=== PATIENT | female | born 1975 | race Caucasian/White ===

== ENCOUNTER 2016-06-21 13:22 | Inpatient (IN) | payer OTHER ==
[~2016-06-21] VITALS: Ht 162.6 cm; Wt 195.2 kg
--- NOTE | ~2016-06-21 | HC ---
[facility] [place] [address] CONSULTATION Name: AYAH EVANS Room #: [address] [place] [address] [place] ..#: [id number] Admission: 06/21/16 Attend Phys: Kwabena Richardson MD Discharge: Date of : 75 Report #: [id number] THIS REPORT FOR: //name// CC: JAYANT physician/PCP Kwabena Richardson DATE OF SERVICE: 06/22/2016 CARDIOLOGY CONSULTATION INDICATION: Chest pain. HISTORY OF PRESENT ILLNESS: This is a 40-year-old female presenting with chest pain. She has significant CAD risk factors, including insulin-dependent diabetes mellitus, hypertension, hypercholesterolemia and chronic tobacco use. She reports having substernal discomfort associated with shortness of breath and diaphoresis. It lasted for several hours' in duration. Serial troponins are negative. She was here in February with a similar presentation. A nuclear stress test revealed possible ischemia in the distal inferior segment. There is no history of fever, chills or vomiting. PAST MEDICAL HISTORY: Diabetes mellitus, hypertension, DVT, hypercholesterolemia, obesity and COPD. ALLERGIES: PENICILLIN, HYDROMORPHONE and LEVOFLOXACIN. MEDICATIONS: Include insulin, valsartan 320 mg daily, simvastatin 20 mg, aspirin once a day, Eliquis 5 mg twice a day, Aldactone 50 mg daily, metoprolol and diltiazem. SOCIAL HISTORY: Positive for tobacco use, one pack per day. FAMILY HISTORY: Negative for premature CAD. REVIEW OF SYSTEMS: A full 10-point review of systems performed. Only the pertinent positives and negatives are described in the HPI. PHYSICAL EXAMINATION: VITAL SIGNS: Blood pressure is 120/70, heart rate is 70 beats per minute. GENERAL APPEARANCE: An obese female in no acute respiratory distress. HEAD AND EYES: Normocephalic. Sclerae anicteric. ENT: Oral mucosa moist. NECK: Supple. LUNGS: Clear to auscultation. CARDIAC: Heart regular rate and rhythm, S1, S2 positive. ABDOMEN: Soft. [facility] [address] [place] [address] CONSULTATION Name: AYAH EVANS Room #: [facility] IN [facility].#: [id number] Admission: 06/21/16 Attend Phys: Kwabena Richardson MD Discharge: Date of : 75 Report #: [id number] EXTREMITIES: No major joint deformities. No edema. RADIOGRAPHIC DATA: ECG reveals sinus rhythm, nonspecific IVCD. LABORATORY VALUES: Serial troponins are negative. Sodium is 136, creatinine is 1.7. White count is 14.0, hemoglobin 13.6. ASSESSMENT AND PLAN: 1. Unstable angina. The patient had a previous nuclear stress test several months ago that revealed possible ischemia in the distal inferior segment. I do not see the benefit of repeating a nuclear stress study. Given her significant risk factors and abnormal nuclear stress test. The next option would be a cardiac catheterization. The overall risks and benefits of cardiac catheterization were discussed with the patient. The patient understands and wishes to proceed. 2. Deep venous thrombosis several years ago, will need to hold Eliquis at this time. We will proceed with angiogram in a few days' time. 3. Hypertension. The blood pressure is stable. 4. Hypercholesterolemia, tolerating statin therapy, offers no complaints of myalgias. 5. Diabetes mellitus, continue with insulin regimen. 6. Tobacco use, complete smoking cessation is recommended. Thank you for allowing me to participate in the care of your patient. <ELECTRONICALLY SIGNED> By: Chance Christopher MD 06/23/16 0802 0802 1229 Chance Christopher MD /nt
--- NOTE | ~2016-06-21 | 2DMMODE ---
[facility] [place] [address] 2 D/M-MODE ECHOCARDIOGRAM Name: AYAH EVANS Kaden Room #: 211-P [facility]#: [id number] Admission: 06/21/16 Attend Phys: Kwabena Richardson, Discharge: Date of : 75 Date of Service: 06/22/16 1529 Report #: [id number] THIS REPORT FOR: //name// APPROVED REPORT Study performed: 06/22/2016 14:04:15 EXAM: Comprehensive 2D, Doppler, and color-flow Echocardiogram Patient Location: Bedside Blood Pressure: 126/61 mmHg HR: 83 bpm Other Information Study Quality: Poor Indications COPD Diabetes Hypertension/HDD Chest Pain Aortic Valve AoV Peak Abdirahman.: 1.42 m/s AO Peak Gr.: 8.08 mmHg LV Max P.28 mmHg LV Max: 0.91 m/s Mitral Valve MV PHT: 71.87 ms MV E Max Abdirahman.: 0.85 m/s E/A Ratio: 1.4 MV A Abdirahman.: 0.62 m/s MV Decel. Time: 247.82 ms Pulmonary Valve PV Peak Abdirahman.: 1.08 m/s PV Peak Gr.: 4.65 mmHg Left Ventricle The left ventricle appears normal in size. The left ventricular systolic function appears normal. The left ventricular ejection fraction is within the normal range. LVEF is 55-60%. The left ventricular diastolic function is normal. Right Ventricle [facility] [address] [place] [address] 2 D/M-MODE ECHOCARDIOGRAM Name: AYAH EVANS Room #: 211-P [facility] IN M.R.#: [id number] Admission: 06/21/16 Attend Phys: Kwabena Richardson, Discharge: Date of : 75 Date of Service: 06/22/16 1529 Report #: [id number] The right ventricle is normal size. The right ventricular systolic function is normal. Atria The left atrium size is normal. The right atrium size is normal. Aortic Valve The aortic valve is not well visualized. Mitral Valve Mitral valve is not well visualized. Tricuspid Valve Tricuspid valve is not well visualized. Pulmonic Valve Pulmonic valve is not visualized. Great Vessels IVC is not visualized. Pericardium There is no pericardial effusion. <Conclusion> The left ventricle appears normal in size. LVEF is 55-60%. The aortic valve is not well visualized. Mitral valve is not well visualized. Tricuspid valve is not well visualized. There is no pericardial effusion. Very little useful information obtained <ELECTRONICALLY SIGNED> By: Joce Trevizo MD 06/22/16 1529 1529 1529 Joce Trevizo MD /INF
--- NOTE | ~2016-06-21 | CATHLAB ---
[facility] [place] [address] INVASIVE PROCEDURE REPORT Name: AYAH EVANS Room #: 211-P [facility]#: [id number] Admission: 06/21/16 Attend Phys: Kwabena Richardson, Discharge: 06/24/16 Date of : 75 Date of Service: 06/24/16 1105 Report #: [id number] THIS REPORT FOR: //name// CC: [facility] physician/PCP Kwabena Richardson DATE OF SERVICE: 06/24/2016 CARDIAC CATHETERIZATION REPORT INDICATIONS: Unstable angina, abnormal nuclear stress test. Full risks, benefits and alternatives of cardiac catheterization were explained to the patient. All questions were answered. Informed consent was obtained. A Barbeau test was performed on the right radial artery. The right wrist area was prepped and draped in a sterile manner. Lidocaine was given subcutaneously. A 5-Indonesian sheath was inserted into the right radial artery via modified Seldinger technique. Nitroglycerin and verapamil were injected through the sheath. Heparin 5000 units was introduced in the peripheral IV. CORONARY ANATOMY: The left main artery is a large caliber vessel, with no flow-limiting lesions. The LAD is a hheenjfj-rs-dhsgl-sized caliber vessel, travelling down the anterior wall and wrapping around the apex. There are no flow-limiting lesions in the LAD. There may be some minimal luminal irregularities in the mid segment of the LAD. The first diagonal artery is a moderate-sized caliber vessel, with no flow-limiting lesions. The left circumflex artery is a fcnhcsgy-ye-gvbek-sized caliber vessel, dominant as it supplies a distal PDA. There are no flow-limiting lesions in the left circumflex artery. There may be some minimal luminal irregularities in the proximal segment. There are 3 obtuse marginal arteries, with no flow-limiting lesions. The left PDA appears to be patent, with no flow-limiting lesions. The is a small, nondominant vessel, with no flow-limiting lesions. A left ventriculogram was performed revealing normal LV systolic function, ejection fraction of 60%. The LVEDP is approximately 38 mmHg. There is no gradient across the outflow tract. At the end of the procedure, the sheath was removed and a Vasc band was applied for hemostasis. [facility] [address] [address] INVASIVE PROCEDURE REPORT Name: LIZETTE EVANSARIANNA Alfonso Room #: 211-P [facility] IN [facility]#: [id number] Admission: 06/21/16 Attend Phys: Kwabena Richardson, Discharge: 06/24/16 Date of : 75 Date of Service: 06/24/16 1105 Report #: [id number] IMPRESSION: 1. Patent coronary arteries. Minimal luminal irregularities, as described above. 2. Left dominant system. 3. Normal left ventricular systolic function. 4. Recommend risk factor management. <ELECTRONICALLY SIGNED> By: Chance Christopher MD 06/25/16 0752 1105 1253 Chance Christopher MD /nt
--- NOTE | ~2016-06-21 | EKG ---
[place] [address] [facility] [address] ELECTROCARDIOGRAM REPORT Name: AYAH EVANS Room #: [facility] Jens#: [id number] Admission: 06/21/16 Attend Phys: Discharge: Date of : 75 Report #: [id number] THIS REPORT FOR: //name// [facility] ED Test Date: 2016-06-21 Test Time: 14:06:40 Pat Name: AYAH EVANS Department: Room: Gender: F Pilot Fuel Engineer: Tania ESPANA : 1975 Requested By: Anne Marie Cervantes Order Number: [id number] MD: Ladarius Wilkinson Measurements Intervals [place] Rate: 91 P: 27 [place]: 142 QRS: 5 QRSD: 131 T: 6 QT: 375 QTc: 462 Interpretive Statements Sinus rhythm Nonspecific intraventricular conduction delay Electronically Signed On 06-21-2016 14:35:50 CDT by Ladarius Wilkinson [email or web address] <ELECTRONICALLY SIGNED> By: Ladarius Wilkinson MD 06/21/16 1435 1406 1406 Ladarius Wilkinson MD /EPI
[~2016-06-21 13:22] MED LIST: ALAVERT10 MG; ALDACTONE50 MG PO; AMBIEN 10 MG TA10 MG; AMITRIPTYLINE H50 M4 PO; ASPIR 8181 MG PO; AZITHROMYCIN 2250 MG PO; BUDEPRION SR150 MG; CARDIZEM CD240 MG PO; CHERATUSSIN DA480 ML; CYMBALTA30 MG PO; DILTIAZEM ER180 M1; DIOVAN320 MG; DIOVAN320 MG PO; ELIQUIS5 MG PO; FLAGYL500 MG PO; FUROSEMIDE 80 M80 M1; HUMALOG100 UNIT/1 SUBQ; HYDROCODON-ACE1 EAC1; HYDROCODONE-AP1 EAC6 PO; IBUPROFEN 600600 M1; KLOR-CON 1010 MEQ; LANTUS100 UNIT/M SUBQ; LOPRESSOR25 PO; LORATIDINE 10 M10 M1; METFORMIN HCL500 MG PO; METHYLDOPA; NEURONTIN 300300 M1 PO; NIASPAN 500 MG500 M1; NORCO 5-325 TA1 EACH PO; NYAMYC15 GM TOP; PRILOSEC 20 MG20 MG PO; REQUIP1 MG PO; SINGULAIR 10 MG10 MG PO; TRAZODONE 150150 M1 PO; TRIAMTERENE-HC1 EAC3; VALTREX 500 MG500 MG; VITAMIN D 5050000 I1; VITAMIN D2000 UNIT PO; WOMEN'S DAILY1 EAC2; ZANTAC 150MG T150 MG PO; ZOCOR20 MG PO
[2016-06-21 13:23] VITALS: BP 125/69
[2016-06-21] MEDS ORDERED: TRADJENTA5 MG (13:31)
[2016-06-21] MEDS ORDERED: XANAX 0.25 MG0.25 MG PO (13:32)
[2016-06-21 14:07] LABS: ABSOLUTE NEUTROPHILS 12.9 thou/uL (1.4-8.2); EOSINOPHILS 0.8 % (0.0-3.0); HEMATOCRIT 40.1 % (37.0-47.0); HEMOGLOBIN 13.4 gm/dL (12.0-15.0); LYMPHOCYTES 18.5 % (24.0-44.0); MCH 29.2 pg (26.0-34.0); MCHC 33.4 g/dL (28.0-37.0); MCV 87.2 fL (80.0-100.0); MONOCYTES 4.4 % (1.0-8.0); PLATELET COUNT 434 thou/uL (150-400); POLYS 75.3 % (36.0-66.0); WBC 17.1 thou/uL (4.0-11.0)
[2016-06-21 14:09] LABS: MANUAL DIFF NO
[2016-06-21 16:01] LABS: ANION GAP 6 mmol/L (7-16); BUN 13 mg/dL (7-18); CALCIUM 8.9 mg/dL (8.5-10.1); CHLORIDE 103 mmol/L (98-107); CO2 29 mmol/L (21-32); CREATININE 1.1 mg/dL (0.6-1.0); GLUCOSE 117 mg/dL (74-106); POTASSIUM 4.1 mmol/L (3.5-5.1); SODIUM 138 mmol/L (136-145)
[2016-06-21 16:13] LABS: NT-PRO BRAIN NAT PEPTIDE 59 pg/mL (<300); TROPONIN-I < 0.04 ng/mL (<0.04-0.07)
[2016-06-21 18:18] VITALS: BP 126/72
[2016-06-21 18:36] VITALS: BP 133/69
[2016-06-21 23:14] LABS: URINE BILIRUBIN NEGATIVE (Negative); URINE BLOOD NEGATIVE (Negative); URINE COLOR YELLOW; URINE GLUCOSE-RANDOM* NEGATIVE (Negative); URINE KETONES NEGATIVE (Negative); URINE NITRITE NEGATIVE (Negative); URINE PROTEIN (DIPSTICK) 2+ (Negative); URINE SPECIFIC GRAVITY >= 1.030 (1.003-1.035); URINE UROBILINOGEN 0.2 E.U./dl (0.2-1.0)
[2016-06-21 23:26] LABS: CASTS None Seen /LPF (None Seen); SQUAMOUS 4-10 Moderate /LPF (0-3); URINE RBC None Seen /HPF (0-2); URINE WBC None Seen /HPF (0-5)
[2016-06-21 23:27] LABS: CRYSTALS None Seen /LPF (None Seen)
[2016-06-22 03:36] VITALS: BP 113/73
[2016-06-22 05:58] LABS: HEMATOCRIT 41.7 % (37.0-47.0); HEMOGLOBIN 13.6 gm/dL (12.0-15.0); MCH 28.9 pg (26.0-34.0); MCHC 32.7 g/dL (28.0-37.0); MCV 88.3 fL (80.0-100.0); RBC 4.72 mil/uL (4.20-5.00); RDW 15.9 % (10.5-14.5)
[2016-06-22 06:26] LABS: ALBUMIN 2.4 g/dL (3.4-5.0); ALKALINE PHOSPHATASE 191 U/L (46-116); ANION GAP 8 mmol/L (7-16); BUN 23 mg/dL (7-18); CALCIUM 8.6 mg/dL (8.5-10.1); CHLORIDE 100 mmol/L (98-107); CO2 28 mmol/L (21-32); CREATININE 1.7 mg/dL (0.6-1.0); GLUCOSE 282 mg/dL (74-106); POTASSIUM 4.7 mmol/L (3.5-5.1); SGOT 17 U/L (15-37); SGPT 18 U/L (30-65); SODIUM 136 mmol/L (136-145); TOTAL BILIRUBIN 0.3 mg/dL (<0.1-1.0); TOTAL PROTEIN 6.4 g/dL (6.4-8.2); TROPONIN-I < 0.04 ng/mL (<0.04-0.07)
[2016-06-22 11:51] VITALS: BP 123/88
[2016-06-22 20:40] VITALS: BP 136/76
[2016-06-23 04:00] VITALS: BP 118/66
[2016-06-23 04:01] LABS: CALCIUM 8.7 mg/dL (8.5-10.1); CREATININE 1.4 mg/dL (0.6-1.0); POTASSIUM 4.7 mmol/L (3.5-5.1)
[2016-06-23 07:16] VITALS: BP 139/92
[2016-06-23 16:00] VITALS: BP 117/61
[2016-06-23 19:47] VITALS: BP 111/62
[2016-06-24] VITALS (12 sets, daily range): BP systolic 99–155; BP diastolic 48–90
[2016-06-24 04:42] LABS: APTT 24.3 Seconds (24.5-32.8); PROTIME 9.7 Seconds (9.3-11.4)
== END 2016-06-24 19:27 | disposition left against medical advice (07) | DRG 287 ==
LOC: ER 13:22 → 2N 16:11 → EROBS 16:11 → 2N 18:13
PROVIDERS: Emergency Medicine; Internal Medicine; Internal Medicine Cardiovascular Disease
PROC: B2151ZZ Fluoroscopy of Left Heart using Low Osmolar Contrast (ICD-10-PCS; principal; 2016-06-24)
PROC: B2111ZZ Fluoroscopy of Multiple Coronary Arteries using Low Osmolar Contrast (ICD-10-PCS; principal; 2016-06-24)
PROC: 4A023N7 Measurement of Cardiac Sampling and Pressure, Left Heart, Percutaneous Approach (ICD-10-PCS; principal; 2016-06-24)
DX: I25.110 Atherosclerotic heart disease of native coronary artery with unstable angina pectoris (principal); Z68.45 Body mass index [BMI] 70 or greater, adult; F41.9 Anxiety disorder, unspecified; F17.210 Nicotine dependence, cigarettes, uncomplicated; I10 Essential (primary) hypertension; E78.00 Pure hypercholesterolemia, unspecified; F32.9 Major depressive disorder, single episode, unspecified; E66.01 Morbid (severe) obesity due to excess calories; E11.9 Type 2 diabetes mellitus without complications; J44.9 Chronic obstructive pulmonary disease, unspecified; K21.9 Gastro-esophageal reflux disease without esophagitis; Z53.21 Procedure and treatment not carried out due to patient leaving prior to being seen by health care provider; E78.5 Hyperlipidemia, unspecified; Z86.19 Personal history of other infectious and parasitic diseases; Z86.73 Personal history of transient ischemic attack (TIA), and cerebral infarction without residual deficits; Z86.718 Personal history of other venous thrombosis and embolism; Z90.49 Acquired absence of other specified parts of digestive tract; Z79.4 Long term (current) use of insulin; Z82.3 Family history of stroke; Z82.5 Family history of asthma and other chronic lower respiratory diseases; Z80.9 Family history of malignant neoplasm, unspecified; Z82.49 Family history of ischemic heart disease and other diseases of the circulatory system; Z88.6 Allergy status to analgesic agent; Z88.1 Allergy status to other antibiotic agents; Z88.0 Allergy status to penicillin; Z79.01 Long term (current) use of anticoagulants; Z71.6 Tobacco abuse counseling
CPT/HCPCS: 10081

== ENCOUNTER 2016-07-25 00:35 | Emergency (ER) | payer OTHER ==
[~2016-07-25] VITALS: Ht 160 cm; Wt 177.4 kg
--- NOTE | ~2016-07-25 | EKG ---
[place] [address] [facility] [address] [place] [address] ELECTROCARDIOGRAM REPORT Name: AYAH EVANS Room #: [facility] Jens#: [id number] Admission: 07/25/16 Attend Phys: Discharge: 07/25/16 Date of : 75 Report #: [id number] THIS REPORT FOR: //name// [facility] ED Test Date: 2016-07-25 Test Time: 01:10:09 Pat Name: AYAH EVANS Department: Room: Gender: F Registrar Assistant: LALITO : 1975 Requested By: Vesta Bauer Order Number: [id number] MD: Ladarius Wilkinson Measurements Intervals [place] Rate: 91 P: 30 [place]: 126 QRS: 28 QRSD: 132 T: 9 QT: 394 QTc: 485 Interpretive Statements Sinus rhythm Nonspecific intraventricular conduction delay Inferolateral infarct, old Compared to ECG 06/21/2016 14:06:40 Myocardial infarct finding now present Electronically Signed On 07-26-2016 8:49:39 CDT by Ladarius Wilkinson [email or web address] <ELECTRONICALLY SIGNED> By: Ladarius Wilkinson MD 07/26/16 0849 0110 9 Ladarius Wilkinson MD /JIMMIE
[~2016-07-25 00:35] MED LIST changes: +TRADJENTA5 MG; +XANAX 0.25 MG0.25 MG PO
[2016-07-25] MEDS ORDERED: NORCO 5-325 TA1 EACH PO (01:27)
[2016-07-25] MEDS ORDERED: BACTRIM DS TAB1 EACH PO (01:27)
[2016-07-25 01:48] VITALS: BP 150/78
== END 2016-07-25 01:49 | disposition home or self-care (01) ==
LOC: ER 00:35
DX: L02.212 Cutaneous abscess of back [any part, except buttock and flank] (principal); I10 Essential (primary) hypertension; F32.9 Major depressive disorder, single episode, unspecified; E66.9 Obesity, unspecified; Z68.44 Body mass index [BMI] 60.0-69.9, adult; E11.9 Type 2 diabetes mellitus without complications; J44.9 Chronic obstructive pulmonary disease, unspecified; F41.9 Anxiety disorder, unspecified; F17.210 Nicotine dependence, cigarettes, uncomplicated; K21.9 Gastro-esophageal reflux disease without esophagitis; Z90.89 Acquired absence of other organs; Z90.49 Acquired absence of other specified parts of digestive tract; Z88.0 Allergy status to penicillin; Z88.1 Allergy status to other antibiotic agents; Z88.5 Allergy status to narcotic agent

== ENCOUNTER 2017-08-20 20:04 | Inpatient (IN) | payer OTHER ==
[~2017-08-20] VITALS: Ht 160 cm; Wt 137.4 kg
--- NOTE | ~2017-08-20 | EKG ---
[place] [address] [facility] [place] [address] ELECTROCARDIOGRAM REPORT Name: AYAH EVANS Room #: 458-P [facility] IN M.R.#: [id number] Admission: 08/20/17 Attend Phys: Prashant Casas MD Discharge: Date of : 75 Report #: [id number] THIS REPORT FOR: //name// [facility] ED Test Date: 2017-08-20 Test Time: 20:35:17 Pat Name: AYAH EVANS Department: Room: Gender: F Highballer: singh : 1975 Requested By: Lucian Goodrich Order Number: [id number] MD: Chance Christopher Measurements Intervals [place] Rate: 93 P: 67 RI: 117 QRS: 36 QRSD: 133 T: 20 QT: 379 QTc: 472 Interpretive Statements Sinus rhythm Borderline short RI interval Right bundle-branch block Nonspecific ST segment abnormalities Compared to ECG 02/13/2017 22:41:37 No significant changes Electronically Signed On 08-21-2017 12:57:51 CDT by Chance Christopher [email or web address] <ELECTRONICALLY SIGNED> By: Chance Christopher MD 08/21/17 1257 2035 34 Chance Christopher MD /JIMMIE
[~2017-08-20 20:04] MED LIST changes: +ANTIVERT25 MG PO; +BACTRIM DS TAB1 EACH PO; +DIFLUCAN200 MG PO; +KEFLEX500 M1 PO; +PHENAZOPYRIDIN200 M2 PO; +VALIUM5 MG PO
[2017-08-20 20:20] VITALS: BP 140/63
[2017-08-20 20:57] LABS: HEMOGLOBIN 14.7 gm/dL (12.0-15.0); MCH 30.6 pg (26.0-34.0); MCHC 34.3 g/dL (28.0-37.0); MCV 89.3 fL (80.0-100.0); RBC 4.81 mil/uL (4.20-5.00); WBC 10.2 thou/uL (4.0-11.0)
[2017-08-20 21:17] LABS: ANION GAP 12 mmol/L (7-16); BUN 12 mg/dL (7-18); CALCIUM 8.8 mg/dL (8.5-10.1); CHLORIDE 97 mmol/L (98-107); CO2 23 mmol/L (21-32); CREATININE 1.2 mg/dL (0.6-1.0); POTASSIUM 3.9 mmol/L (3.5-5.1); SODIUM 132 mmol/L (136-145); TROPONIN-I < 0.04 ng/mL (<0.06)
[2017-08-20 21:19] LABS: GLUCOSE 611 mg/dL (74-106)
[2017-08-20] MEDS ORDERED: AZITHROMYCIN 2250 MG PO (22:15)
[2017-08-20] MEDS ORDERED: PREDNISONE 20 M20 M1 PO (22:15)
[2017-08-21 01:01] VITALS: BP 140/63
[2017-08-21 01:31] VITALS: BP 125/78
[2017-08-21 04:28] VITALS: BP 108/52
[2017-08-21 08:00] VITALS: BP 147/70
[2017-08-21 16:00] VITALS: BP 90/73
[2017-08-21 19:12] VITALS: BP 137/76
[2017-08-22 03:10] VITALS: BP 117/74
[2017-08-22 05:56] LABS: HEMATOCRIT 42.2 % (37.0-47.0); HEMOGLOBIN 14.3 gm/dL (12.0-15.0); MCH 30.3 pg (26.0-34.0); MCV 89.1 fL (80.0-100.0); RBC 4.74 mil/uL (4.20-5.00); RDW 13.8 % (10.5-14.5); WBC 11.4 thou/uL (4.0-11.0)
[2017-08-22 06:13] LABS: ALBUMIN 2.4 g/dL (3.4-5.0); CALCIUM 8.7 mg/dL (8.5-10.1); CREATININE 0.8 mg/dL (0.6-1.0); POTASSIUM 4.4 mmol/L (3.5-5.1); TOTAL BILIRUBIN 0.2 mg/dL (<0.1-1.0); TOTAL PROTEIN 6.3 g/dL (6.4-8.2)
[2017-08-22 09:26] VITALS: BP 146/74
[2017-08-22 17:28] VITALS: BP 125/57
[2017-08-22 19:23] VITALS: BP 118/53
[2017-08-23 02:10] LABS: GLYCOHEMOGLOBIN (HGB A1C) 13.2 % (4.8-5.6)
[2017-08-23 04:00] VITALS: BP 117/69
[2017-08-23 05:59] LABS: ABSOLUTE NEUTROPHILS 9.2 thou/uL (1.4-8.2); BASOPHILS 0.1 % (0.0-2.0); CALCIUM 8.7 mg/dL (8.5-10.1); CREATININE 0.9 mg/dL (0.6-1.0); HEMATOCRIT 42.1 % (37.0-47.0); HEMOGLOBIN 14.1 gm/dL (12.0-15.0); LYMPHOCYTES 17.4 % (24.0-44.0); MCH 30.1 pg (26.0-34.0); MCHC 33.4 g/dL (28.0-37.0); MCV 90.1 fL (80.0-100.0); MONOCYTES 4.6 % (1.0-8.0); PLATELET COUNT 262 thou/uL (150-400); POLYS 77.9 % (36.0-66.0); RBC 4.67 mil/uL (4.20-5.00); RDW 14.3 % (10.5-14.5); WBC 11.8 thou/uL (4.0-11.0)
[2017-08-23 07:27] VITALS: BP 129/68
[2017-08-23] MEDS ORDERED: LANTUS SOL100 UNIT/1 SUBQ (14:40)
[2017-08-23] MEDS ORDERED: PREDNISONE 20 M20 M1 PO (14:40)
[2017-08-23] MEDS ORDERED: AZITHROMYCIN 2250 MG PO (14:40)
[2017-08-23 14:49] VITALS: BP 129/68
== END 2017-08-23 15:38 | disposition home or self-care (01) | DRG 189 ==
LOC: ER 20:04 → EROBS 23:36 → 4W 23:36
PROVIDERS: Emergency Medicine; Hospitalist
DX: J96.20 Acute and chronic respiratory failure, unspecified whether with hypoxia or hypercapnia (principal); J44.1 Chronic obstructive pulmonary disease with (acute) exacerbation; Z68.43 Body mass index [BMI] 50.0-59.9, adult; E11.65 Type 2 diabetes mellitus with hyperglycemia; E66.9 Obesity, unspecified; F17.210 Nicotine dependence, cigarettes, uncomplicated; I10 Essential (primary) hypertension; E78.5 Hyperlipidemia, unspecified; F32.9 Major depressive disorder, single episode, unspecified; F41.9 Anxiety disorder, unspecified; K21.9 Gastro-esophageal reflux disease without esophagitis; Z88.5 Allergy status to narcotic agent; Z88.1 Allergy status to other antibiotic agents; Z88.0 Allergy status to penicillin; Z79.4 Long term (current) use of insulin; Z79.899 Other long term (current) drug therapy; Z71.6 Tobacco abuse counseling
CPT/HCPCS: 10045

== ENCOUNTER 2017-09-21 15:24 | Emergency (ER) | payer OTHER ==
[~2017-09-21] VITALS: Ht 160 cm; Wt 147.9 kg
--- NOTE | ~2017-09-21 | EKG ---
[facility] [place] [address] ELECTROCARDIOGRAM REPORT Name: AYAH EVANS [id number] Admission: 09/21/17 Attend Phys: Discharge: 09/21/17 Date of : 75 Report #: [id number] THIS REPORT FOR: //name// [facility] ED Test Date: 2017-09-21 Test Time: 15:25:44 Pat Name: AAYH EVANS Department: Room: Gender: F Lead Mechanical Engineer: MZOOK : 1975 Requested By: Lucian Goodrich Order Number: [id number] MD: Vijay Riddle Measurements Intervals [place] Rate: 95 P: 36 [place]: 122 QRS: 23 QRSD: 131 T: 7 QT: 378 QTc: 475 Interpretive Statements Sinus rhythm Nonspecific intraventricular conduction delay Inferior infarct, age indeterminate Compared to ECG 08/20/2017 20:35:17 significant change was found Electronically Signed On 09-22-2017 8:03:36 CDT by Vijay Riddle [email or web address] <ELECTRONICALLY SIGNED> By: Vijay Riddle MD, [facility] 09/22/17 0803 1525 1525 Vijay Riddle MD, FACC /EPI
[~2017-09-21 15:24] MED LIST changes: +LANTUS SOL100 UNIT/1 SUBQ; +PREDNISONE 20 M20 M1 PO
[2017-09-21 15:41] LABS: ABSOLUTE NEUTROPHILS 10.5 thou/uL (1.4-8.2); HEMATOCRIT 40.7 % (37.0-47.0); HEMOGLOBIN 13.9 gm/dL (12.0-15.0); LYMPHOCYTES 19.7 % (24.0-44.0); MCH 30.3 pg (26.0-34.0); MCHC 34.2 g/dL (28.0-37.0); MCV 88.7 fL (80.0-100.0); MONOCYTES 4.5 % (1.0-8.0); PLATELET COUNT 343 thou/uL (150-400); POLYS 72.8 % (36.0-66.0); RBC 4.58 mil/uL (4.20-5.00); RDW 14.2 % (10.5-14.5); WBC 14.4 thou/uL (4.0-11.0)
[2017-09-21 15:51] LABS: ANION GAP 3 mmol/L (7-16); BUN 18 mg/dL (7-18); CALCIUM 9.2 mg/dL (8.5-10.1); CHLORIDE 103 mmol/L (98-107); CO2 28 mmol/L (21-32); CREATININE 1.1 mg/dL (0.6-1.0); GLUCOSE 180 mg/dL (74-106); POTASSIUM 4.2 mmol/L (3.5-5.1); SODIUM 134 mmol/L (136-145)
[2017-09-21 16:02] LABS: TROPONIN-I <0.06 ng/mL (<0.06)
[2017-09-21 17:11] VITALS: BP 132/75
[2017-09-21] MEDS ORDERED: PREDNISONE 20 M20 M1 PO (17:19)
[2017-09-21] MEDS ORDERED: DOXYCYCLINE 10100 MG PO (17:19)
== END 2017-09-21 17:38 | disposition home or self-care (01) ==
LOC: ER 15:24
PROVIDERS: Emergency Medicine
DX: J18.9 Pneumonia, unspecified organism (principal); J44.9 Chronic obstructive pulmonary disease, unspecified; F17.210 Nicotine dependence, cigarettes, uncomplicated; I10 Essential (primary) hypertension; F32.9 Major depressive disorder, single episode, unspecified; E11.9 Type 2 diabetes mellitus without complications; E66.01 Morbid (severe) obesity due to excess calories; F41.9 Anxiety disorder, unspecified; K21.9 Gastro-esophageal reflux disease without esophagitis; E78.5 Hyperlipidemia, unspecified; Z90.49 Acquired absence of other specified parts of digestive tract; Z86.718 Personal history of other venous thrombosis and embolism; Z79.4 Long term (current) use of insulin; Z88.1 Allergy status to other antibiotic agents; Z88.0 Allergy status to penicillin; Z88.8 Allergy status to other drugs, medicaments and biological substances

== ENCOUNTER 2018-06-13 19:10 | Emergency (ER) | payer OTHER ==
[~2018-06-13] VITALS: Ht 160 cm; Wt 140.6 kg
[~2018-06-13 19:10] MED LIST changes: +DOXYCYCLINE 10100 MG PO
[2018-06-13 20:05] LABS: BASOPHILS 0.4 % (0.0-2.0); EOSINOPHILS 2.5 % (0.0-3.0); HEMATOCRIT 36.7 % (37.0-47.0); HEMOGLOBIN 12.7 gm/dL (12.0-15.0); MCH 33.2 pg (26.0-34.0); MCHC 34.5 g/dL (28.0-37.0); MCV 96.2 fL (80.0-100.0); MONOCYTES 7.3 % (1.0-8.0); PLATELET COUNT 192 thou/uL (150-400); POLYS 65.8 % (36.0-66.0); RBC 3.82 mil/uL (4.20-5.00); RDW 12.6 % (10.5-14.5)
[2018-06-13 20:08] LABS: ANION GAP 11 mmol/L (7-16); BUN 21 mg/dL (7-18); CHLORIDE 102 mmol/L (98-107); CO2 27 mmol/L (21-32); CREATININE 1.1 mg/dL (0.6-1.0); GLUCOSE 127 mg/dL (74-106); POTASSIUM 3.5 mmol/L (3.5-5.1); SODIUM 140 mmol/L (136-145)
[2018-06-13 20:17] LABS: ALBUMIN 4.3 g/dL (3.4-5.0); SGOT 30 U/L (15-37); SGPT 38 U/L (30-65); TOTAL BILIRUBIN 0.3 mg/dL (<0.1-1.0); TOTAL PROTEIN 7.6 g/dL (6.4-8.2); TROPONIN-I <0.06 ng/mL (<0.06)
[2018-06-13] MEDS ORDERED: DOXYCYCLINE 10100 MG PO (20:56)
[2018-06-13 21:06] VITALS: BP 139/86
--- NOTE | 2018-06-14 08:49 | EKG ---
[place] [address] [address] [address] [place] [address] ELECTROCARDIOGRAM REPORT Name: AYAH EVANS [id number] ������������������ Admission: 06/13/18 ������������������ Attend Phys: Discharge: 06/13/18 ������������������ Date of : 75 Report #: [id number] ����������������������������������������������������������������� [id number] THIS REPORT FOR: //name// [facility] ED Test Date: 2018-06-13 Test Time: 19:46:12 Pat Name: AYAH EVANS Department: Room: Gender: F Validation Manager: ANT : 1975 Requested By: Brooklyn Griggs Order Number: [id number] MD: Ladarius Wilkinson Measurements Intervals [place] Rate: 96 P: 36 RI: 120 QRS: 6 QRSD: 129 T: 5 QT: 373 QTc: 472 Interpretive Statements Sinus rhythm Nonspecific intraventricular conduction delay Inferolateral infarct, old Compared to ECG 09/21/2017 15:25:44 No significant changes Electronically Signed On 06-14-2018 8:48:58 CDT by Ladarius Wilkinson [email or web address] ��������������������������������������������� <ELECTRONICALLY SIGNED> ���������������������������������������� By: Ladarius Wilkinson MD ��������������������������������������������� 06/14/18 0848 45 45 Ladarius Wilkinson MD /JIMMIE
== END 2018-06-13 21:15 | disposition home or self-care (01) ==
LOC: ER 19:10
PROVIDERS: Physician Assistant
DX: J18.9 Pneumonia, unspecified organism (principal); R07.89 Other chest pain; I10 Essential (primary) hypertension; E11.9 Type 2 diabetes mellitus without complications; J44.9 Chronic obstructive pulmonary disease, unspecified; K21.9 Gastro-esophageal reflux disease without esophagitis; E78.5 Hyperlipidemia, unspecified; F17.210 Nicotine dependence, cigarettes, uncomplicated; Z79.4 Long term (current) use of insulin; Z79.899 Other long term (current) drug therapy; Z88.0 Allergy status to penicillin; Z88.1 Allergy status to other antibiotic agents; Z88.5 Allergy status to narcotic agent; Z86.718 Personal history of other venous thrombosis and embolism

== ENCOUNTER 2018-06-21 22:02 | Emergency (ER) | payer OTHER ==
[~2018-06-21] VITALS: Ht 160 cm; Wt 132.4 kg
[2018-06-21] MEDS ORDERED: LEVEMIR SUBQ (22:48)
[2018-06-21] MEDS ORDERED: NOVOLOG100 UNIT/1 SUBQ (22:49)
[2018-06-22 00:13] VITALS: BP 126/72
== END 2018-06-22 00:14 | disposition home or self-care (01) ==
LOC: ER 22:02
DX: S09.8XXA Other specified injuries of head, initial encounter (principal); I10 Essential (primary) hypertension; F32.9 Major depressive disorder, single episode, unspecified; E11.9 Type 2 diabetes mellitus without complications; J44.9 Chronic obstructive pulmonary disease, unspecified; F41.9 Anxiety disorder, unspecified; K21.9 Gastro-esophageal reflux disease without esophagitis; E78.5 Hyperlipidemia, unspecified; E66.9 Obesity, unspecified; F17.210 Nicotine dependence, cigarettes, uncomplicated; Z68.43 Body mass index [BMI] 50.0-59.9, adult; Z90.49 Acquired absence of other specified parts of digestive tract; Z79.4 Long term (current) use of insulin; Z86.718 Personal history of other venous thrombosis and embolism; Z88.0 Allergy status to penicillin; Z88.5 Allergy status to narcotic agent; Z88.1 Allergy status to other antibiotic agents; W22.8XXA Striking against or struck by other objects, initial encounter; Y93.89 Activity, other specified; Y92.89 Other specified places as the place of occurrence of the external cause; Y99.8 Other external cause status

== ENCOUNTER 2018-07-03 20:32 | Emergency (ER) | payer OTHER ==
[~2018-07-03] VITALS: Ht 160 cm; Wt 140.6 kg
[~2018-07-03 20:32] MED LIST changes: +LEVEMIR SUBQ; +NOVOLOG100 UNIT/1 SUBQ
[2018-07-03 21:04] LABS: ABSOLUTE NEUTROPHILS 12.5 thou/uL (1.4-8.2); BASOPHILS 1.1 % (0.0-2.0); EOSINOPHILS 0.6 % (0.0-3.0); HEMATOCRIT 38.6 % (37.0-47.0); HEMOGLOBIN 13.1 gm/dL (12.0-15.0); LYMPHOCYTES 14.3 % (24.0-44.0); MCHC 33.8 g/dL (28.0-37.0); MCV 88.5 fL (80.0-100.0); MONOCYTES 3.9 % (1.0-8.0); PLATELET COUNT 326 thou/uL (150-400); POLYS 80.1 % (36.0-66.0); RBC 4.36 mil/uL (4.20-5.00); RDW 13.9 % (10.5-14.5); WBC 15.6 thou/uL (4.0-11.0)
[2018-07-03 21:18] LABS: ANION GAP 11 mmol/L (7-16); BUN 11 mg/dL (7-18); CALCIUM 8.8 mg/dL (8.5-10.1); CHLORIDE 101 mmol/L (98-107); CO2 23 mmol/L (21-32); CREATININE 1.5 mg/dL (0.6-1.0); GLUCOSE 403 mg/dL (74-106); POTASSIUM 4.4 mmol/L (3.5-5.1); SODIUM 135 mmol/L (136-145)
[2018-07-03 21:26] LABS: TROPONIN-I <0.06 ng/mL (<0.06)
[2018-07-03] MEDS ORDERED: AZITHROMYCIN 2250 MG PO (22:20)
[2018-07-03 22:48] VITALS: BP 107/66
[2018-07-03] MEDS ORDERED: NAPROSYN500 MG PO (22:49)
--- NOTE | 2018-07-04 17:07 | EKG ---
[place] [address] [place] [address] ELECTROCARDIOGRAM REPORT Name: AYAH EVANS [id number] ������������������ Admission: 07/03/18 ������������������ Attend Phys: Discharge: 07/03/18 ������������������ Date of : 75 Report #: [id number] ����������������������������������������������������������������� [id number] THIS REPORT FOR: //name// [facility] ED Test Date: 2018-07-03 Test Time: 20:38:57 Pat Name: AYAH EVANS Department: Room: Gender: Slipper Maker: Linnea : 1975 Requested By: Lucian Goodrich Order Number: [id number] MD: Vijay Riddle Measurements Intervals [place] Rate: 97 P: 36 [place]: 129 QRS: 10 QRSD: 127 T: 12 QT: 358 QTc: 455 Interpretive Statements Sinus rhythm Nonspecific intraventricular conduction delay Poor R wave progression Compared to ECG 06/13/2018 19:46:12 No significant changes Electronically Signed On 07-04-2018 17:07:23 CDT by Vijay Riddle [email or web address] ��������������������������������������������� <ELECTRONICALLY SIGNED> ���������������������������������������� By: Vijay Riddle MD, [facility] ��������������������������������������������� 07/04/18 1707 37 37 Vijay Riddle MD, FACC /EPI
== END 2018-07-03 22:50 | disposition home or self-care (01) ==
LOC: ER 20:32
PROVIDERS: Emergency Medicine
DX: J18.8 Other pneumonia, unspecified organism (principal); F17.210 Nicotine dependence, cigarettes, uncomplicated; I10 Essential (primary) hypertension; F32.9 Major depressive disorder, single episode, unspecified; E11.9 Type 2 diabetes mellitus without complications; J44.9 Chronic obstructive pulmonary disease, unspecified; F41.9 Anxiety disorder, unspecified; K21.9 Gastro-esophageal reflux disease without esophagitis; E78.5 Hyperlipidemia, unspecified; E66.9 Obesity, unspecified; Z90.49 Acquired absence of other specified parts of digestive tract; Z68.43 Body mass index [BMI] 50.0-59.9, adult; Z88.8 Allergy status to other drugs, medicaments and biological substances; Z88.1 Allergy status to other antibiotic agents; Z88.0 Allergy status to penicillin; Z79.4 Long term (current) use of insulin; Z86.718 Personal history of other venous thrombosis and embolism

== ENCOUNTER 2018-11-11 23:28 | Emergency (ER) | payer OTHER ==
[~2018-11-11] VITALS: Ht 160 cm; Wt 149.7 kg
[~2018-11-11 23:28] MED LIST changes: +NAPROSYN500 MG PO
[2018-11-12] MEDS ORDERED: NORCO 5-325 TA1 EAC1 PO (01:19)
[2018-11-12] MEDS ORDERED: NAPROSYN500 MG PO (01:19)
[2018-11-12 01:28] VITALS: BP 123/60
== END 2018-11-12 01:30 ==
LOC: ER 23:28
DX: S70.01XA Contusion of right hip, initial encounter (principal); S39.012A Strain of muscle, fascia and tendon of lower back, initial encounter; I10 Essential (primary) hypertension; F32.9 Major depressive disorder, single episode, unspecified; E11.9 Type 2 diabetes mellitus without complications; J44.9 Chronic obstructive pulmonary disease, unspecified; F41.9 Anxiety disorder, unspecified; K21.9 Gastro-esophageal reflux disease without esophagitis; E78.5 Hyperlipidemia, unspecified; F17.210 Nicotine dependence, cigarettes, uncomplicated; Z86.718 Personal history of other venous thrombosis and embolism; Z90.49 Acquired absence of other specified parts of digestive tract; Z79.4 Long term (current) use of insulin; Z88.1 Allergy status to other antibiotic agents; Z88.6 Allergy status to analgesic agent; Z88.0 Allergy status to penicillin; W10.8XXA Fall (on) (from) other stairs and steps, initial encounter; Y93.01 Activity, walking, marching and hiking; Y92.89 Other specified places as the place of occurrence of the external cause; Y99.8 Other external cause status

== ENCOUNTER 2019-04-23 17:32 | Emergency (ER) | payer OTHER ==
[~2019-04-23] VITALS: Ht 160 cm; Wt 163.3 kg
[~2019-04-23 17:32] MED LIST changes: +NORCO 5-325 TA1 EAC1 PO
[2019-04-23] MEDS ORDERED: ALBUTEROL2.5 MG/3 M INH (19:34)
[2019-04-23] MEDS ORDERED: WARFARIN SODIUM5 MG PO (19:35)
[2019-04-23] MEDS ORDERED: VITAMIN D325 MC3 PO (19:36)
[2019-04-23] MEDS ORDERED: SINGULAIR 10 MG10 M1 PO (19:38)
[2019-04-23] MEDS ORDERED: OMEPRAZOLE40 MG PO (19:38)
[2019-04-23] MEDS ORDERED: BUPROPION XL300 MG PO (19:40)
[2019-04-23 19:42] LABS: ABSOLUTE NEUTROPHILS 7.1 thou/uL (1.4-8.2); BASOPHILS 0.7 % (0.0-2.0); EOSINOPHILS 1.4 % (0.0-3.0); HEMATOCRIT 39.2 % (37.0-47.0); HEMOGLOBIN 13.1 gm/dL (12.0-15.0); MCH 28.4 pg (26.0-34.0); MCHC 33.4 g/dL (28.0-37.0); MCV 84.9 fL (80.0-100.0); MONOCYTES 4.2 % (1.0-8.0); PLATELET COUNT 282 thou/uL (150-400); POLYS 76.7 % (36.0-66.0); RBC 4.62 mil/uL (4.20-5.00); RDW 14.5 % (10.5-14.5); WBC 9.3 thou/uL (4.0-11.0)
[2019-04-23 20:05] LABS: ANION GAP 9 mmol/L (7-16); BUN 18 mg/dL (7-18); CHLORIDE 98 mmol/L (98-107); CO2 26 mmol/L (21-32); CREATININE 1.2 mg/dL (0.6-1.0); POTASSIUM 4.4 mmol/L (3.5-5.1); SODIUM 133 mmol/L (136-145); TROPONIN-I <0.06 ng/mL (<0.06)
[2019-04-23 20:06] LABS: GLUCOSE 501 mg/dL (74-106)
[2019-04-23] MEDS ORDERED: COUMADIN 5 MG TA5 M1 PO ×2 (23:01→23:11)
[2019-04-23] MEDS ORDERED: SENNA-DOCUSATE1 EAC1 PO (23:01)
[2019-04-23] MEDS ORDERED: NORCO 5-325 TA1 EAC1 PO (23:01)
[2019-04-23] MEDS ORDERED: KEFLEX500 M1 PO (23:01)
[2019-04-23 23:31] VITALS: BP 141/87
--- NOTE | 2019-04-25 12:34 | EKG ---
[facility] [place] [address] ELECTROCARDIOGRAM REPORT Name: AYAH EVANS Room #: [facility]#: [id number] Admission: 04/23/19 Attend Phys: Discharge: 04/23/19 Date of : 75 Report #: [id number] THIS REPORT FOR: cc: KUNAL ALONSO DO Physician not on staff Vijay Riddle MD [facility] ~ THIS REPORT FOR: //name// [facility] ED Test Date: 2019-04-23 Test Time: 17:35:30 Pat Name: AYAH EVANS Department: Room: Gender: F Obstetrics Gyn: : 1975 Requested By: Anne Marie Cervantes Order Number: [id number] MD: Vijay Riddle Measurements Intervals [place] Rate: 106 P: 45 PA: 117 QRS: 16 QRSD: 129 T: 0 QT: 359 QTc: 477 Interpretive Statements Sinus tachycardia Inferior infarct, old Compared to ECG 07/03/2018 20:38:57 No significant change was found Electronically Signed On 04-24-2019 9:10:00 CLAIMS VICE PRESIDENT by Vijay Riddle [email or web address] <ELECTRONICALLY SIGNED> By: Vijay Riddle MD, [facility] 04/24/19 0910 1735 173 Vijay Riddle MD, [facility] /EPI
== END 2019-04-23 23:20 | disposition home or self-care (01) ==
LOC: ER 17:32
PROVIDERS: Emergency Medicine
DX: R07.89 Other chest pain (principal); I10 Essential (primary) hypertension; F32.9 Major depressive disorder, single episode, unspecified; F41.9 Anxiety disorder, unspecified; J44.9 Chronic obstructive pulmonary disease, unspecified; K21.9 Gastro-esophageal reflux disease without esophagitis; E78.5 Hyperlipidemia, unspecified; F17.210 Nicotine dependence, cigarettes, uncomplicated; Z90.49 Acquired absence of other specified parts of digestive tract; Z90.89 Acquired absence of other organs; Z86.711 Personal history of pulmonary embolism; Z79.4 Long term (current) use of insulin; Z88.0 Allergy status to penicillin; Z88.1 Allergy status to other antibiotic agents; Z88.5 Allergy status to narcotic agent

== ENCOUNTER 2019-07-03 15:43 | Inpatient (IN) | payer OTHER ==
[~2019-07-03] VITALS: Ht 160 cm; Wt 182.3 kg
[~2019-07-03 15:43] MED LIST changes: +ALBUTEROL2.5 MG/3 M INH; +BUPROPION XL300 MG PO; +COUMADIN 5 MG TA5 M1 PO; -LORATIDINE 10 M10 M1; +LORATIDINE 10 M10 M1 PO; +OMEPRAZOLE40 MG PO; +SENNA-DOCUSATE1 EAC1 PO; +SINGULAIR 10 MG10 M1 PO; +VITAMIN D325 MC3 PO; +WARFARIN SODIUM5 MG PO
[2019-07-03 15:44] VITALS: BP 166/74
[2019-07-03 18:04] LABS: CALCIUM 8.4 mg/dL (8.5-10.1); CREATININE 1.3 mg/dL (0.6-1.0)
[2019-07-03 18:11] LABS: ALBUMIN 2.7 g/dL (3.4-5.0); TOTAL BILIRUBIN 0.3 mg/dL (<0.1-1.0)
[2019-07-03 18:15] LABS: ABSOLUTE NEUTROPHILS 7.1 thou/uL (1.4-8.2); BASOPHILS 0.9 % (0.0-2.0); HEMOGLOBIN 13.3 gm/dL (12.0-15.0); LYMPHOCYTES 17.1 % (24.0-44.0); MCH 28.5 pg (26.0-34.0); MCHC 33.2 g/dL (28.0-37.0); MCV 86.1 fL (80.0-100.0); MONOCYTES 4.3 % (1.0-8.0); PLATELET COUNT 321 thou/uL (150-400); POLYS 76.7 % (36.0-66.0); RBC 4.65 mil/uL (4.20-5.00); RDW 16.2 % (10.5-14.5); WBC 9.3 thou/uL (4.0-11.0)
[2019-07-03 19:34] VITALS: BP 141/87
[2019-07-03 19:55] VITALS: BP 146/84
[2019-07-03 21:00] VITALS: BP 128/68
[2019-07-03] MEDS ORDERED: DILTIAZEM ER180 M2 PO (21:32)
[2019-07-04] VITALS: BP 156/93
[2019-07-04 02:48] LABS: HEMATOCRIT 38.8 % (37.0-47.0); HEMOGLOBIN 12.6 gm/dL (12.0-15.0); MCH 28.5 pg (26.0-34.0); MCHC 32.6 g/dL (28.0-37.0); MCV 87.4 fL (80.0-100.0); RBC 4.44 mil/uL (4.20-5.00); RDW 16.4 % (10.5-14.5); WBC 8.4 thou/uL (4.0-11.0)
[2019-07-04 02:55] LABS: INR 1.5; PROTIME 14.7 Seconds (9.3-11.4)
[2019-07-04 03:09] LABS: CALCIUM 7.9 mg/dL (8.5-10.1); CREATININE 1.3 mg/dL (0.6-1.0); POTASSIUM 4.7 mmol/L (3.5-5.1)
[2019-07-04 04:20] VITALS: BP 153/91
[2019-07-04 07:27] VITALS: BP 137/73
--- NOTE | 2019-07-04 09:17 | NUR ---
PATIENT ARRIVED ON UNIT AT 1999 VIA CART FROM ED ACCOMPANIED BY ED FAIZA. PATIENT ALERT AND ORIENTED X4. ABD OBESE WITH AN INFECTION UNDER PANIS. ORDER RECEIVED TO PLACE INFRADRY UNDER PANIS TO KEEP IT DRY. UNDER PANIS IS RED WITH A SPLIT OF ABOUT AN INCH AND A HALF. IT IS VERY TENDER TO PATIENT. ACCUCHECK WAS 508 WITH LAB. GLASS BEAD MAKER WAS CALLED AND ORDERS TAKEN, AND FOLLOWED. PUT AN SS LOW DOSE INSULIN AND GIVEN 12 UNITS. IN ABOUT 2 HOURS IT WAS 337.PATIENT C/O PAIN. PO MED GIVEN X2 WITH LITTLE RELIEF. IV MED GIVEN X1 WITH EDUCATION THAT IT WAS TO GET HER OVER THE HUMP AND TO NOT DEPEND ON IT IF SHE DID NOT NEED IT. 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
[2019-07-04 13:35] LABS: URINE BILIRUBIN NEGATIVE (Negative); URINE BLOOD TRACE (Negative); URINE CLARITY CLEAR; URINE COLOR YELLOW; URINE GLUCOSE-RANDOM* 3+ (Negative); URINE KETONES NEGATIVE (Negative); URINE LEUKOCYTES-REFLEX NEGATIVE (Negative); URINE NITRITE-REFLEX NEGATIVE (Negative); URINE PROTEIN (DIPSTICK) 3+ (Negative); URINE SPECIFIC GRAVITY 1.025 (1.005-1.035); URINE UROBILINOGEN 0.2 E.U./dl (0.2-1.0)
[2019-07-04 13:49] LABS: SQUAMOUS >10 Many /LPF (0-3); URINE WBC-REFLEX 6-15 Few /HPF (0-5)
[2019-07-04 13:51] LABS: URINE RBC 3-10 Few /HPF (0-2)
[2019-07-04 13:53] LABS: CRYSTALS None Seen /LPF (None Seen); HYALINE CASTS 0-3 Few /LPF (None Seen); WBC CLUMPS Few (None Seen)
--- NOTE | 2019-07-04 14:01 | NUR ---
PT ADMITTED RELATED TO CELLULITIS. CM REVIEWED CHART AND SPOKE WITH CARE TEAM. CM CALLED AND SPOKE WITH PT THIS DAY. SHE APPEARED TO BE A&O X4. CM ROLE INTRODUCED. PT INDICATED SHE LIVES IN A HOUSE WITH HER SPOUSE, BROTHER, AND SISTER IN LAW. PT INDICATED SHE HAD USED A FWW TO ASSIST WITH MOBILITY METALLURGICAL TESTER AND THAT SHE HAD BEEN INDEPENDENT WITH ADLS. PT INDICATED SHE HAD HOME 02 AT 2L METALLURGICAL TESTER THROUGH [facility]. PT HAS A NEBULIZER WELL. PT INDICATED THAT SHE PLANS TO RETURN HOME ONCE MEDICALLY STABLE. CM TO FOLLOW INDICATED WITH DC PLANNING.
[2019-07-04 15:29] VITALS: BP 149/61
--- NOTE | 2019-07-04 15:33 | HC ---
[facility] [place] [address] CONSULTATION Name: AYAH EVANS Room #: 438-[facility] IN M.R.#: [id number] Admission: 07/03/19 Attend Phys: Prashant Casas MD Discharge: Date of : 75 Report #: [id number] THIS REPORT FOR: cc: KUNAL ALONSO DO Physician not on staff Judy Miller MD ~ CC: KUNAL Casas Physician staff DATE OF SERVICE: 07/04/2019 ENDOCRINE CONSULTATION NOTE CONSULTING PHYSICIAN: Dr. Richardson. REASON FOR CONSULTATION: Uncontrolled type 2 diabetes mellitus. HISTORY OF PRESENT ILLNESS: This is a 44-year-old female patient whose medical background is significant for multiple significant medical issues including type 2 diabetes mellitus, diabetic neuropathy, COPD, GERD, hypertension and hyperlipidemia in the setting of morbid obesity who presented yesterday with complaints of progressive lower extremity edema, fluid retention and dyspnea on exertion. This seems to have progressed slowly over the past few weeks. The patient notes that her history of type 2 diabetes mellitus dates back to over 10 years ago and that she is supposed to be on a regimen of Levemir insulin 50 units twice a day and Humalog insulin 35 units t.i.d. a.c. She does, however, indicate that she has been unable to access her medications due to loss of insurance and that there have been significant gaps in therapy, although she did not specify and what matter and for how long. She did, however, indicate that her blood glucose values have predominantly been over 400 mg/dL for the past few weeks without issues of hypoglycemia. The patient's background is negative for diabetic retinopathy, but is noted for peripheral diabetic neuropathy and although she takes gabapentin 300 mg b.i.d., she has not been able to control this aspect well. Also, she notes a history of stage 3 chronic kidney disease and that she was for some time under the care of a director insurance, but that she has not done so in quite a while due to loss of health coverage. The patient is not known to have CAD, CHF or strokes. The patient is known to have hyperlipidemia and is maintained on simvastatin therapy and she is also on antihypertensive therapy. REVIEW OF SYSTEMS: CONSTITUTIONAL: Fatigue, tiredness, but no fever, chills or changes in body [address] [address] CONSULTATION Name: AYAH EVANS Room #: [address] [place] [address] [place] ..#: [id number] Admission: 07/03/19 Attend Phys: Prashant Casas MD Discharge: Date of : 75 Report #: [id number] weight. HEENT: Negative for sore throat, sinus pain, ear drainage. PULMONARY: Noted for dyspnea on exertion, intermittent cough, but no hemoptysis. CARDIAC: Lower extremity edema, dyspnea on exertion or orthopnea. No chest pain or palpitations. GASTROINTESTINAL: Abdominal discomfort, abdominal distention and occasional nausea, but not vomiting. NEUROLOGY: Baseline is noted for diabetic neuropathy that is painful, not well controlled by the current gabapentin therapy, no seizure activities, frequent severe headaches or loss of consciousness. PSYCHIATRIC: The patient has baseline anxiety and depression issues. Seemingly stable. No active delusions or hallucinations. Otherwise, review of systems is noncontributory other than those mentioned in HPI. PAST MEDICAL HISTORY: 1. Type 2 diabetes mellitus. 2. Peripheral diabetic neuropathy. 3. Chronic kidney disease stage 3. 4. Hypertension. 5. Hyperlipidemia. 6. Morbid obesity. 7. Depression. 8. Anxiety. 9. Chronic obstructive pulmonary disease. 10. Gastroesophageal reflux disease. 11. History of deep venous thrombosis of the lower extremity. 12. Osteoarthritis. OUTPATIENT MEDICATIONS: Include albuterol p.r.n., Coumadin 5 mg daily, vitamin D3 25 mcg daily, loratadine 10 mg daily, diltiazem 120 mg daily, Cymbalta 30 mg t.i.d., Neurontin 300 mg b.i.d., Zantac 150 mg b.i.d., Requip 1 mg at bedtime, Desyrel 50 mg at bedtime, Elavil 100 mg at bedtime, Singulair 10 mg daily, Zocor 20 mg at bedtime, multivitamins, Aldactone 25 mg b.i.d., Xanax 0.25 mg t.i.d., Levemir insulin 50 units b.i.d., NovoLog 35 units t.i.d. a.c., omeprazole b.i.d., bupropion XL 300 mg daily. ALLERGIES: SHE IS ALLERGIC TO DILAUDID, LEVOFLOXACIN, PENICILLIN. FAMILY HISTORY: Noncontributory. SOCIAL HISTORY: She is , has no children. Denies active use of alcohol or tobacco. PHYSICAL EXAMINATION: GENERAL: Pleasant female patient who is not in apparent pain or [facility] [address] [facility] [address] CONSULTATION Name: AYAH EVANS Room #: 438-[facility] IN Jens#: [id number] Admission: 07/03/19 Attend Phys: Prashant Casas MD Discharge: Date of : 75 Report #: [id number] distress. VITAL SIGNS: Blood pressure is 137/73 mmHg, heart rate is 97 beats per minute, respirations 18 per minute, temperature 36.6 degrees Celsius. CONSTITUTIONAL: The patient is sitting upright in bed, appears relatively comfortable, not in apparent distress. HEENT: Anicteric sclerae. Intact extraocular motions. NECK: Supple, without JVD. No thyromegaly. CHEST: Noted for distant breath sounds, scattered rales, rhonchi. HEART: Regular rate and rhythm without murmurs or gallops. ABDOMEN: Obese, tense, but without guarding or significant tenderness. Active bowel sounds. EXTREMITIES: Lower extremity exam is noted for stasis dermatitis bilaterally, +1 ankle edema bilaterally. No skin breaks or ulcerations. Sensation to light touch is diminished. Pedal pulses are diminished. NEUROLOGICALLY: Awake, alert and oriented to time, place and person. The remainder of her examination is nonfocal, other than for sensory deficits. PSYCHIATRIC: Pleasant, interactive. Normal mood and affect. LABORATORY DATA: Blood glucose values have consistently been over 300 mg/dL and ranged from 330 to 371 mg/dL. Otherwise, sodium 135, potassium 4.7, chloride 101, CO2 of 25, anion gap 9, BUN 21, creatinine 1.3, AST 14, total bilirubin 0.3, calcium 7.9, magnesium 1.9, alkaline phosphatase 167, ALT 20, total protein 6.0, albumin 2.7, EGFR 44. Lactic acid 1.6. Troponin negative. BNP 102. White blood count 8.4, hemoglobin 12.6, hematocrit 38.8, platelets 311. Hemoglobin A1c in 08/2017 was 13.2%. ASSESSMENT AND PLAN: 1. Type 2 diabetes mellitus. Uncontrolled as per her reported blood glucose values and as per the outlook of historic hyperglycemia and multiple end-organ complications. It is in question as to whether or not the patient has actually been getting the reported insulin regimen as she indicated the inability to access her insulin consistently due to insurance barriers. She is currently maintained on Lantus insulin 50 units b.i.d. and Humalog insulin 35 units with meals. Given the patient's persistent hyperglycemia, I will raise her Lantus insulin to 60 units twice a day and Humalog insulin to 44 units t.i.d. a.c. and maintain support with Humalog supplemental scale. Blood glucose monitoring will commence a.c. and at bedtime and further therapeutic adjustments will be made accordingly. I will obtain a hemoglobin A1c to better assess the patient's most recent glycemic standing. Towards home discharge, the patient might be more suited for human insulin, potentially mixed insulin due to the cost advantage and to ensure insulin intake consistency. 2[place] [address] CONSULTATION Name: AYAH EVANS Room #: 438-[facility] IN [facility].#: [id number] Admission: 07/03/19 Attend Phys: Prashant Casas MD Discharge: Date of : 75 Report #: [id number] The patient is maintained on lipid-lowering therapy and is currently placed on atorvastatin 10 mg daily, which she tolerates well, she is to continue with the same. 3. Peripheral diabetic neuropathy. This is a baseline issue that is only partially controlled. She is to continue with the current Cymbalta and gabapentin therapy for the time being. 4. Hypertension. The patient's level of blood pressure control is adequate, she is to continue with the current regimen. 5. Renal insufficiency. The patient has baseline stage 3 chronic kidney disease and her current renal function indices are consistent with that. I stressed the importance of sustained blood sugar and blood pressure control in order to benefit this aspect of her care, which she understood well. I appreciate this consultation by Dr. Richardson. <ELECTRONICALLY SIGNED> By: Judy Miller MD 07/04/19 [id number] Judy Miller MD /nt
--- NOTE | 2019-07-04 15:58 | NUR ---
PT A&OX4. IV INTACT IN L FA. AMBULATES TO BSC WITH ASSIST X1. PI IS NON COMPLIANT WITH HER DIABETIC DIET. FOUND [employer]ER WRAPPERS ON THE FLOOR THIS AM AT SHIFT CHANGE, PT IS ASKING FOR FOOD THRUGHOUT THE DAY, THIS NURSE DID NOT GIVE HER ANY EXTRA FOOD OR SNACKS.
[2019-07-04 19:24] VITALS: BP 155/77
[2019-07-05 03:07] LABS: GLYCOHEMOGLOBIN (HGB A1C) 10.6 % (4.8-5.6)
[2019-07-05 03:40] VITALS: BP 156/76
[2019-07-05 05:51] LABS: HEMATOCRIT 38.6 % (37.0-47.0); HEMOGLOBIN 12.8 gm/dL (12.0-15.0); MCH 28.8 pg (26.0-34.0); MCHC 33.1 g/dL (28.0-37.0); MCV 86.9 fL (80.0-100.0); RBC 4.44 mil/uL (4.20-5.00); RDW 16.9 % (10.5-14.5); WBC 9.5 thou/uL (4.0-11.0)
--- NOTE | 2019-07-05 05:51 | NUR ---
Assumed pt care at 1900, A/OX4, VSS. Up with min assist to BSC,RW/GB w/o problems. C/o pain to BLE/under pannus, medicated per EMAR with relief reported. Interdry fabric applied under pannus and in place,edema noted on BLE encouraged to elevate extremities. Resting quietly at this time w/o distress noted, call light/personal items within reach. Will continue to monitor pt.
[2019-07-05 06:06] LABS: CREATININE 1.1 mg/dL (0.6-1.0); POTASSIUM 4.2 mmol/L (3.5-5.1)
[2019-07-05 07:28] VITALS: BP 144/78
--- NOTE | 2019-07-05 10:53 | NUR ---
PT A&OX4. AMBULATES WITH STANDBY ASSIST. IV FLUIDS INFUSING W/O COMPS IN L AC. PT IS MORE COMPLIANT OF DIET TODAY ASKING LESS FOR FOOD TO EAT. I SPENT A LENTHGY TIME YESTERDAY EDUCATING PT ON THE DANGERS OF NON COMPLIANCE WITH DIET AND HIGH BLOOD SUGARS. PT VERBALIZES UNDERSTANDING. CALL LIGHT W/I REACH. WILL CONT POC.
--- NOTE | 2019-07-05 13:34 | NUR ---
ON-GOING ASSESSMENT: PT REMAINS ON IV FLUCONAZOLE AND IS SLOWLY PROGRESSING TOWARDS GOALS. CM WILL CONTINUE TO FOLLOW TO ASSIST NEEDED.
[2019-07-05 19:12] VITALS: BP 150/83
[2019-07-06 03:17] VITALS: BP 166/89
--- NOTE | 2019-07-06 05:11 | NUR ---
RECIEVED CARE OF THIS PATIENT AT 1900. PATIENT ALERT AND ORIENTED X4. UP WITH SBA. HAD SHOWER THIS SHIFT. IV IN LAC WITH FLUIDS INFUSING. ANDREW LOWER EXT EDEMA. ACCUCHECK WAS 86. SNACK GIVEN. AFTER SHOWER IT WAS 79, SNACK GIVEN. C/O PAIN, MED GIVEN. SLEPT OFF AND ON DURING NIGHT.
[2019-07-06 06:13] LABS: HEMATOCRIT 36.6 % (37.0-47.0); HEMOGLOBIN 12.1 gm/dL (12.0-15.0); MCH 28.6 pg (26.0-34.0); MCV 86.8 fL (80.0-100.0); RBC 4.21 mil/uL (4.20-5.00); RDW 16.3 % (10.5-14.5); WBC 7.9 thou/uL (4.0-11.0)
[2019-07-06 06:28] LABS: INR 2.7; PROTIME 27.9 Seconds (9.3-11.4)
[2019-07-06 06:29] LABS: CALCIUM 8.2 mg/dL (8.5-10.1); CREATININE 1.1 mg/dL (0.6-1.0); POTASSIUM 4.4 mmol/L (3.5-5.1)
--- NOTE | 2019-07-06 08:51 | NUR ---
Assess due to high BMI 71.3, extreme class III obesity. Hx poorly controlled diabetes, A1C 10.6, HTN, CKD. Endocronology following, pt requires scheduled insulin and ss insulin. Noted had lost insurance coverage and not receiving all scheduled insulin at home. Appetite is good, sometimes asking for more food throughout day. Wts typically average >400 lb. Pt denied need for diet education. Did review allowed carbs for hospital menu selections. Asking for diet soda/coffee and will approve on heart healthy options for pt. Admitted for panus cellulitis. Low nutrition risk.
--- NOTE | 2019-07-06 15:07 | NUR ---
PT IS SLOWLY PROGRESSING. IT IS ANTIPATED THAT PT WILL BE MEDICALLY STABLE TO DC HOME OVER THE WEEKEND. PT HAD HOME O2 AND A FWW. IT IS ANTICIPATED THAT PT WILL BE ABLE TO DC HOME WITH NO NEEDS.
--- NOTE | 2019-07-06 16:08 | NUR ---
ASSUMED CARE AT 0700. PT ALERT AND ORIENTED WITH NO VOICED CONCERNS AT THE TIME. VSS, RA. PAIN BEING CONTROLLED WITH PRN MEDS. PIV INFUSING WITHOUT COMPLICATIONS. PT STATES SHE IS "WEAK" AND "IN PAIN". WILL CONTINUE TO MONITOR. TOLERATING PO AND SUGARS BEING MONITORED AND TREATED PRN.
[2019-07-06 16:33] VITALS: BP 158/65
[2019-07-06 20:24] VITALS: BP 139/64
--- NOTE | 2019-07-07 03:03 | NUR ---
ASSESSMENT COMPLETED. PT CONTINUES ON IV ABTS AND IVF. C/O PAIN TO BLE, RELIEVED BY NORCO. PT ASKS FOR SNACKS AND SODA MOST OF THE TIME, DIABETIC EDUCATION PROVIDED.SATTING OK ON ROOM AIR. UP WITH SBA.TIGHT EDEMA TO BLE.WILL CONTINUE WITH POC TILL EOS.
[2019-07-07 06:29] LABS: INR 3.1; PROTIME 32.1 Seconds (9.3-11.4)
[2019-07-07 08:42] VITALS: BP 145/90
[2019-07-07 17:19] VITALS: BP 156/72
--- NOTE | 2019-07-07 19:26 | NUR ---
Assumed care of pt at 0700. Pt assumed care of pt at 0700. Pain controlled with prn pain meds. Pt's bloog sugar 68 this afternoon. Treated, rechecked and was 98. IVF D/C'd. Call light within reach. Report given to stefano CASTAÑEDA.
[2019-07-07 19:30] VITALS: BP 152/83
--- NOTE | 2019-07-07 23:44 | NUR ---
ASSESSED AT START OF SHIFT PT A&OX4 IV INTACT AND ABX INFUISING. BLOOD SUGAR CHECKED AND LONG ACTING INSULIN ADMINISTERED. NIGHT TIME SNACKS ALSO PROVIDED. HYDROCODONE GIVEN FOR PAIN MED OF 8/10 IN BLE. FALL PREC IN PLACE AND CALL LIGHT IN REACH WILL CONT WITH POC TILL EOS.
[2019-07-08 02:45] LABS: HEMATOCRIT 37.4 % (37.0-47.0); HEMOGLOBIN 12.1 gm/dL (12.0-15.0); MCH 28.2 pg (26.0-34.0); MCHC 32.4 g/dL (28.0-37.0); MCV 87.1 fL (80.0-100.0); RBC 4.3 mil/uL (4.20-5.00); RDW 16.5 % (10.5-14.5)
[2019-07-08 02:54] LABS: CALCIUM 8.7 mg/dL (8.5-10.1); CREATININE 1.3 mg/dL (0.6-1.0)
[2019-07-08 02:56] LABS: PROTIME 30.9 Seconds (9.3-11.4)
[2019-07-08 05:54] VITALS: BP 143/69
[2019-07-08] MEDS ORDERED: KEFLEX500 M1 PO (12:45)
[2019-07-08] MEDS ORDERED: NORVASC10 MG PO (12:45)
[2019-07-08] MEDS ORDERED: NORCO 7.5-3251 EACH PO (12:46)
[2019-07-08] MEDS ORDERED: LANTUS SUBQ (12:47)
[2019-07-08] MEDS ORDERED: HUMALOG100 UNIT/1 SUBQ (12:48)
[2019-07-08] MEDS ORDERED: LASIX 40 MG TAB40 MG PO (12:49)
[2019-07-08 13:06] VITALS: BP 156/83
--- NOTE | 2019-07-08 14:30 | NUR ---
Assumed pt care at 7am.Pt in chair resting without c/o.Assessment completed. vss.Meds given as scheduled and well tolerated.Dr Kaba here,dc order noted. Pt called this rn into her room and stated that she wasn't comfortable dc home today.Dr Kaba notified.He said that pt has completed her doses of antibiotic and staying longer in hospital at this period wasn't encouraged due to covid 19.Pt informed and agreed to go home today.Dc summary compile and reviewed with pt.Rx and dc summary copy given. Pt took shower and saline loclk dc'd. At 1430,pt dc home in [place] with spouse in stable condition.
== END 2019-07-08 14:32 | disposition home or self-care (01) | DRG 603 ==
LOC: ER 15:43 → 4S 18:43 → EROBS 18:43 → 4S 20:01
PROVIDERS: Emergency Medicine; Internal Medicine; Nurse Practitioner Family; ADMIT Hospitalist
DX: L03.311 Cellulitis of abdominal wall (principal); Z68.45 Body mass index [BMI] 70 or greater, adult; I12.9 Hypertensive chronic kidney disease with stage 1 through stage 4 chronic kidney disease, or unspecified chronic kidney disease; F32.9 Major depressive disorder, single episode, unspecified; E11.22 Type 2 diabetes mellitus with diabetic chronic kidney disease; N18.3 Chronic kidney disease, stage 3 (moderate); E66.01 Morbid (severe) obesity due to excess calories; E11.42 Type 2 diabetes mellitus with diabetic polyneuropathy; F41.9 Anxiety disorder, unspecified; M19.90 Unspecified osteoarthritis, unspecified site; K21.9 Gastro-esophageal reflux disease without esophagitis; J44.9 Chronic obstructive pulmonary disease, unspecified; E78.5 Hyperlipidemia, unspecified; Z90.49 Acquired absence of other specified parts of digestive tract; Z79.899 Other long term (current) drug therapy; Z79.01 Long term (current) use of anticoagulants; Z79.4 Long term (current) use of insulin; Z88.6 Allergy status to analgesic agent; Z88.5 Allergy status to narcotic agent; Z88.0 Allergy status to penicillin; Z88.8 Allergy status to other drugs, medicaments and biological substances; Z98.890 Other specified postprocedural states; Z87.891 Personal history of nicotine dependence; Z86.718 Personal history of other venous thrombosis and embolism
CPT/HCPCS: 10195

== ENCOUNTER 2019-08-11 20:46 | Inpatient (IN) | payer OTHER ==
[~2019-08-11] VITALS: Ht 160 cm; Wt 158.8 kg
--- NOTE | ~2019-08-11 | HC ---
[facility] [place] [address] CONSULTATION Name: YAMILA GUILLEN Room #: 454-[facility] IN M.R.#: [id number] Admission: 08/12/19 Attend Phys: Chava Mathis MD Discharge: Date of : 75 Report #: [id number] THIS REPORT FOR: cc: [facility] - Clinic physician unknown [facility] - Clinic physician unknown Daniel Barragan MD ~ CC: Chava Mathis [facility] unknown DATE OF SERVICE: 08/12/2019 CONSULTATION: Infectious diseases. HISTORY OF PRESENT ILLNESS: Yamila Guillen is a 44-year-old female who comes to the hospital because of a painful skin rash. The patient states she was in her usual state of health except for some higher than usual sugars on fingerstick. On August 08, she had fairly sudden onset of a painful erythematous macular rash on her medial right knee. This became worse and spread over the . She came to the ER on the and was admitted with cellulitis versus vasculitis. Infectious Disease consultation was requested. PAST MEDICAL HISTORY: Significant for diabetes, hypertension and hyperlipidemia. The patient has COPD. She at times had an elevated creatinine, past history of deep vein thrombosis and pulmonary embolus. The patient is significantly obese, weighing approximately 350 pounds. PAST SURGICAL HISTORY: Includes appendectomy, cholecystectomy and tonsillectomy. ALLERGIES: SHE HAS A HISTORY OF ALLERGY TO PENICILLIN, LEVAQUIN, AND DILAUDID. FAMILY HISTORY: Noncontributory. SOCIAL HISTORY: The patient is . She lives with her and [id number] and his . The patient was a pack to a pack and half a day smoker, but quit about a year ago. The ____ has continued to smoke. The patient denies alcohol or drug use. The patient was a [employer], but had to take disability because of declining health related to her obesity and COPD. REVIEW OF SYSTEMS: The patient is not complaining of fevers, chills, sweats. ENT: No complaints. CARDIOVASCULAR: The patient denies cough, chest pain, shortness of breath. No angina, syncope nor palpitations. GASTROINTESTINAL: The patient denies nausea, vomiting, diarrhea, constipation. She is having some abdominal discomfort. [facility] [address] [place] [address] CONSULTATION Name: YAMILA GUILLEN Room #: 454-[facility].#: [id number] Admission: 08/12/19 Attend Phys: Chava Mathis MD Discharge: Date of : 75 Report #: [id number] EXTREMITIES: The patient complains of pain around her rash. PHYSICAL EXAMINATION: GENERAL: The patient appears alert, oriented, comfortable, not in any distress. VITAL SIGNS: Normal. The patient is afebrile. SKIN: Shows the rash on the right medial knee. There are a series of 2 mm almost petechial type dots, but they become confluent. The rash measures probably in total 11 x 11 cm in a shape somewhat like the [place] with the lower left side having more normal skin. The borders are somewhat indistinct as the rash tapers off into satellite lesions. There may be a little bit of early rash formation around the right ankle and also some going down the right posterior calf. There is no adenopathy. The patient was admitted about a month ago for a monilial rash in the pannus. This has mostly resolved, and has just a little bit of residual erythema. ENT: Negative. HEART: Sounds are normal. LUNGS: Clear. ABDOMEN: Belly is obese, soft, not tender. EXTREMITIES: In addition to the rash is noted to have mild venous stasis changes with 1+ edema and some early rubor. Pulses are excellent. Capillary refill is good. This looks most like a typical cellulitic type rash, probably staph or strep. I would anticipate a good response to cefazolin 3 grams IV daily. The satellite lesions suggest possible yeast, but the rash does not really look yeasty and the patient is not complaining of itching. This looks very different than the monilial rash in the pannus. For now, I would suggest treating for the stasis with elevation and compression. We will use IV antibiotics. We can use Sarna lotion for topical relief as the skin is intact without any open wounds nor drainage. If the rash does not improve with this regimen, we could consider skin biopsy or broader antibiotics. By: [id number] Daniel Barragan MD /nt
[~2019-08-11 20:46] MED LIST changes: +DILTIAZEM ER180 M2 PO; +LANTUS SUBQ; +LASIX 40 MG TAB40 MG PO; +NORCO 7.5-3251 EACH PO; +NORVASC10 MG PO
[2019-08-11 20:49] VITALS: BP 180/85
[2019-08-11 22:05] LABS: ABSOLUTE NEUTROPHILS 8.5 thou/uL (1.4-8.2); BASOPHILS 1.1 % (0.0-2.0); EOSINOPHILS 0.9 % (0.0-3.0); HEMATOCRIT 42.9 % (37.0-47.0); HEMOGLOBIN 14.5 gm/dL (12.0-15.0); LYMPHOCYTES 18.3 % (24.0-44.0); MCH 28.1 pg (26.0-34.0); MCHC 33.7 g/dL (28.0-37.0); MCV 83.3 fL (80.0-100.0); MONOCYTES 4.5 % (1.0-8.0); PLATELET COUNT 353 thou/uL (150-400); POLYS 75.2 % (36.0-66.0); RBC 5.15 mil/uL (4.20-5.00); RDW 15.5 % (10.5-14.5); WBC 11.2 thou/uL (4.0-11.0)
[2019-08-11 22:09] LABS: CALCIUM 8.5 mg/dL (8.5-10.1); CREATININE 1.3 mg/dL (0.6-1.0); POTASSIUM 3.6 mmol/L (3.5-5.1)
[2019-08-11 22:18] LABS: APTT 31.7 Seconds (24.5-32.8); INR 1.1; PROTIME 11.1 Seconds (9.3-11.4)
[2019-08-12 01:50] VITALS: BP 140/89
[2019-08-12 01:54] VITALS: BP 140/89
[2019-08-12 02:35] VITALS: BP 134/69
[2019-08-12 02:54] VITALS: BP 135/72
--- NOTE | 2019-08-12 06:16 | NUR ---
Pt. admitted to the unit from the emergency room accompanied by staff. She is alert and oriented. Pt. has a red rash to her right medial knee and upper calf area. She does c/o pain to the area and po tylenol given (see emar) with some relief. Admission assessment and history is completed. Up to the bathroom with standby.
[2019-08-12 08:00] VITALS: BP 175/87
[2019-08-12 09:36] LABS: INR 1.1; PROTIME 10.8 Seconds (9.3-11.4)
--- NOTE | 2019-08-12 16:32 | NUR ---
Assumed patient care at 0715. She is up with stand-by assist. LSCTA, BS x's 4, ABD is soft and non-tender. She continues with a bright red rash to right lower leg. Patient has asked and received Morphine 0.5mL per IV push q 3-4 hours for "level six to seven" pain at rash site. Blood sugars were 413 at 0730 and 490 at 1230. She was given 12 Units of Sliding Scale Lispro with 54 Units of Glargine at Breakfast. Dr Alvarado notified; no new orders. Dr Alvarado was notified again of 490 Blood Sugar at 1230 per verbal order (and per protocol), patient was given 20 Units of Lispro at Lunchtime. This nurse asked patient if she has any extra snacks in her room that could be increasing her Blood Sugars. Patient denies having any snacks in her room; she allowed this nurse to look in her cabinets/drawers and nothing was found. Will report to on-coming nurse and continue to monitor this patient.
[2019-08-12 19:34] VITALS: BP 145/62
[2019-08-12 23:06] LABS: URINE BILIRUBIN NEGATIVE (Negative); URINE BLOOD TRACE (Negative); URINE CLARITY CLEAR; URINE COLOR YELLOW; URINE GLUCOSE-RANDOM* 3+ (Negative); URINE KETONES NEGATIVE (Negative); URINE LEUKOCYTES NEGATIVE (Negative); URINE NITRITE NEGATIVE (Negative); URINE PROTEIN (DIPSTICK) 3+ (Negative); URINE SPECIFIC GRAVITY 1.015 (1.005-1.035); URINE UROBILINOGEN 0.2 E.U./dl (0.2-1.0)
[2019-08-12 23:26] LABS: BACTERIA 1-9 Few /HPF (None Seen); CASTS None Seen /LPF (None Seen); CRYSTALS None Seen /LPF (None Seen); MUCUS 0-3 Light strn/LPF (None Seen); SQUAMOUS 0-3 Few /LPF (0-3); URINE RBC 3-10 Few /HPF (0-2); URINE WBC 0-5 Rare /HPF (0-5); YEAST Present (None Seen)
--- NOTE | 2019-08-13 03:33 | NUR ---
PAIN CONTROLLED THIS SHIFT. PATIENT BLOOD SUGAR WAS 416 AT AROUND 2100,CALLED [employer] OPERATOR PER WILLIAN NEW ORDER TO GIVE 10 UNITS OF HUMALOG AND CHECK BLOOD SUGAR AT NIGHT. BLOOD SUGAR IS 263 AT THIS TIME. PATIENT REEDUCATED ON CARB CONTROLLED DIET. PATIENT IS UP AT KATHRINE. PATIENT IN BED ASLEEP AT THIS TIME BREATHING REGULAR AND UNLABOURED.
[2019-08-13 05:30] LABS: ABSOLUTE NEUTROPHILS 9.1 thou/uL (1.4-8.2); BASOPHILS 0.4 % (0.0-2.0); HEMATOCRIT 39.1 % (37.0-47.0); LYMPHOCYTES 13.1 % (24.0-44.0); MCHC 33.2 g/dL (28.0-37.0); MCV 84.4 fL (80.0-100.0); PLATELET COUNT 349 thou/uL (150-400); POLYS 81.5 % (36.0-66.0); RBC 4.63 mil/uL (4.20-5.00); RDW 15.5 % (10.5-14.5); WBC 11.2 thou/uL (4.0-11.0)
[2019-08-13 05:32] LABS: CALCIUM 8.1 mg/dL (8.5-10.1); POTASSIUM 4.1 mmol/L (3.5-5.1)
[2019-08-13 05:34] LABS: INR 1.1; PROTIME 10.9 Seconds (9.3-11.4)
[2019-08-13 07:20] VITALS: BP 141/71
--- NOTE | 2019-08-13 09:50 | NUR ---
ORDERS RECEIVED FOR EVAL AND TREAT. PER NURSING NOTES, THE Pt IS UP AD KATHRINE. SPOKE WITH Pt WHO STATES SHE IS HAVING NO DIFFICULTY WITH HER MOBILITY AND HAS BEEN UP ON HER OWN. Pt DECLINING FORMAL P.T. EVAL
--- NOTE | 2019-08-13 13:35 | NUR ---
chart review, cm consult. cm visited with charity via phone call, she a & o x 3, and able to make her needs now. intro to cm, dcp and transition of care. " live at home with spouse, brother and sister in law. feel safe and have support at home if needed. has walker with seat- function properly and not broken. 2 steps enter home with hand rail. manage own medication. have cpap from [facility] and home o2 from am home patient. never driven before. use 5 gallon bucket for bathing. no rehab or hh in past. dr kaila anthony if my primary i am very tired and weak so rehab might be ok"/charity. will cont following as needed for dc needs.
[2019-08-13 15:44] VITALS: BP 145/84
--- NOTE | 2019-08-13 17:58 | NUR ---
Assumed patient care at 0715. Vital signs stable. Blood sugars have improved due to new scheduled Lispro, as well as Lispro Sliding Scale. Highest Blood sugar was 351 at 0758. Blood Sugar 187 at 1657. Patient now has Hydrocodone 1-2 tabs as needed per pain scale. She recieved 1 tab this am, 2 tabs at 1750 for right leg pain of "seven." This medication has been effective for pain management. Will report to on-coming nurse and continue to monitor.
[2019-08-13 19:56] VITALS: BP 126/74
[2019-08-13 23:00] VITALS: BP 126/74
[2019-08-14 00:07] LABS: GLYCOHEMOGLOBIN (HGB A1C) 10.8 % (4.8-5.6)
[2019-08-14 03:58] VITALS: BP 117/65
--- NOTE | 2019-08-14 04:02 | NUR ---
PT TRANFERRED FROM 4W, PT IS AWAKE, ALERT AND ORIENTEDX4, MAKES NEEDS KNOWN, DENIES COUGH, SOB, DIZZINESS OR HEADACHE, C/O PAIN ON BILATERAL LOWER EXTREMITY, PAIN MEDICATIONS GIVEN, NO FURTHER COMPLAINS, MEDICATIONS GIVEN ORDERED, RESTING IN BED AT THIS TIME, NO CONCERNS VOICED, WILL CONTINUE TO MONITOR
[2019-08-14 06:23] LABS: HEMATOCRIT 39.8 % (37.0-47.0); HEMOGLOBIN 13.3 gm/dL (12.0-15.0); MCH 28.2 pg (26.0-34.0); MCHC 33.3 g/dL (28.0-37.0); MCV 84.9 fL (80.0-100.0); RBC 4.7 mil/uL (4.20-5.00); RDW 15.3 % (10.5-14.5); WBC 8.7 thou/uL (4.0-11.0)
[2019-08-14 06:34] LABS: CALCIUM 8.2 mg/dL (8.5-10.1); CREATININE 1.2 mg/dL (0.6-1.0); POTASSIUM 3.5 mmol/L (3.5-5.1)
[2019-08-14 06:35] LABS: INR 1.2; PROTIME 12.1 Seconds (9.3-11.4)
[2019-08-14 07:52] VITALS: BP 143/76
--- NOTE | 2019-08-14 09:56 | HC ---
[facility] [place] [address] CONSULTATION Name: AYAH EVANS Room #: 444-[facility] IN M.R.#: [id number] Admission: 08/12/19 Attend Phys: Eric Alvarado MD Discharge: Date of : 75 Report #: [id number] THIS REPORT FOR: cc: [facility] - Clinic physician unknown [facility] - Clinic physician unknown Judy Miller MD ~ CC: [facility] unknown Eric Alvarado DATE OF SERVICE: 08/13/2019 CONSULTING PHYSICIAN: Dr. Mathis. REASON FOR CONSULTATION: Uncontrolled type 2 diabetes mellitus. HISTORY OF PRESENT ILLNESS: This is a 44-year-old female patient whose medical background is significant for multiple medical issues including longstanding type 2 diabetes mellitus, morbid obesity, hyperlipidemia, hypertension, stage 3 chronic kidney disease as well as peripheral diabetic neuropathy. The patient presented yesterday due to complaints of right flank pain as well as a right leg rash and discomfort. The patient was admitted for further care and monitoring. The patient's most recent antidiabetic regimen had consisted of Lantus insulin 54 units twice a day in addition to Humalog insulin 38 units t.i.d. a.c. She reports that her blood glucose control had been rather adequate on this regimen without the issues of hypoglycemia. However, over the few days that preceded her presentation and as she was feeling sicker, her blood glucose values have risen gradually. Her blood glucose was over 400 mg/dL on presentation. Again, the patient's background is noted for stage 3 chronic kidney disease as well as baseline peripheral diabetic neuropathy, but not heart disease. The patient is also known to have hypertension and is maintained on amlodipine 10 mg daily as well as furosemide 40 mg daily. She also has hyperlipidemia and is maintained on simvastatin 20 mg at bedtime. REVIEW OF SYSTEMS: CONSTITUTIONAL: Fatigue, tiredness, but not fever or chills or body weight changes. HEENT: Negative for sore throat, sinus pain, ear drainage. PULMONARY: Occasional shortness of breath and cough, but no hemoptysis. CARDIAC: Negative for chest pain, syncope or presyncope or frequent significant palpitations. GASTROINTESTINAL: Noted for occasional abdominal discomfort, distention, and intermittent nausea, but not vomiting. NEUROLOGY: Baseline peripheral diabetic neuropathy, but negative for seizure [address] [address] CONSULTATION Name: AYAH EVANS Room #: 444-P [facility] IN M.R.#: [id number] Admission: 08/12/19 Attend Phys: Eric Alvarado MD Discharge: Date of : 75 Report #: [id number] activity or frequent severe headaches, no loss of consciousness. Otherwise, review of systems noncontributory unless mentioned in HPI. PAST MEDICAL HISTORY: 1. Type 2 diabetes mellitus. 2. Hypertension. 3. Hyperlipidemia. 4. Peripheral diabetic neuropathy. 5. Morbid obesity. 6. Chronic kidney disease stage 3. 7. Depression. 8. Chronic obstructive pulmonary disease. 9. Anxiety. 10. Gastroesophageal reflux disease. 11. History of transient ischemic attack. 12. Deep venous thrombosis of the lower extremity. 13. Osteoarthritis. 14. History of cellulitis. PAST SURGICAL HISTORY: Appendectomy, cholecystectomy, 2 hernia repairs. OUTPATIENT MEDICATIONS: Include Lantus insulin 54 units b.i.d., Humalog insulin 38 units t.i.d. a.c., albuterol p.r.n., warfarin 5 mg daily, vitamin D3 25 mcg daily, loratadine 10 mg at bedtime, diltiazem 120 mg daily, Cymbalta 30 mg t.i.d., gabapentin 300 mg b.i.d., ranitidine 150 mg b.i.d., Requip 1 mg at bedtime, trazodone 50 mg at bedtime, Elavil 50 mg at bedtime, Singulair 10 mg daily, simvastatin 20 mg at bedtime, multivitamin daily, spironolactone 25 mg b.i.d., alprazolam 0.25 mg t.i.d., omeprazole b.i.d., bupropion XL 300 mg daily. ALLERGIES: The patient is allergic to HYDROMORPHONE, LEVOFLOXACIN AND PENICILLIN. FAMILY HISTORY: Noncontributory. SOCIAL HISTORY: The patient denies use of tobacco, alcohol or illicit drugs. PHYSICAL EXAMINATION: GENERAL: Pleasant female patient who is not in apparent pain or distress. VITAL SIGNS: Blood pressure is 141/71 mmHg, heart rate is 88 beats per minute, respiration 18 per minute, temperature is 36.4 degrees Celsius. PSYCH: The patient is sitting upright in her chair, does not appear to be in pain or distress. HEENT: Anicteric sclerae. Intact extraocular motions. NECK: Supple, without carotid bruits or thyromegaly. CHEST: Noted for distant breath sounds, scattered rales, but not wheezes or [facility] [address] [place] [address] CONSULTATION Name: AYAH EVANS Room #: 444-P ADM IN Jens#: [id number] Admission: 08/12/19 Attend Phys: Eric Alvarado MD Discharge: Date of : 75 Report #: [id number] crackles. HEART: Regular rate and rhythm without murmurs or gallops. ABDOMEN: Soft, lax. No guarding. Active bowel sounds. EXTREMITIES: Lower extremity exam is noted for trace edema bilaterally with deep skin pigmentation consistent with cellulitic changes over the right lower extremity. NEUROLOGIC: Awake, alert and oriented to time, place and person. The remainder of her examination is noted for peripheral sensory deficits. PSYCHIATRIC: Interactive, pleasant. Normal thought process. Normal mood and affect. LABORATORY DATA: On arrival to the ER, her blood glucose was 413 and shortly after 490 mg/dL. Her most recent was 351 mg/dL. Sodium 133, potassium 4.1, chloride 102, CO2 of 23, anion gap 8, BUN 24, creatinine 1.0, AST of 14, total bilirubin 0.3, calcium 8.1, magnesium 1.9, alkaline phosphatase 167, ALT 20, total protein 6.0, albumin 2.7, EGFR 60. Lactic acid 1.4. Troponin negative. INR 1.1. White blood count 11.2, hemoglobin 13.0, hematocrit 39.1, platelets 349. Hemoglobin A1c on 07/04/2019 was at 10.6%. ASSESSMENT AND PLAN: 1. Type 2 diabetes mellitus. The patient has an uncontrolled baseline judging by her previous recent hospitalization as well as her recently measured hemoglobin A1c. By her report, the patient has done well on the above stated insulin regimen of basal bolus insulin. However, she has had recent worsening of hyperglycemia, likely in the context of an active infection. That said, I will go towards raising her insulin doses to accommodate this acute worsening with the hope that this would not need to be a longstanding measure. That said, I will change her Lantus insulin from 54-64 units twice a day as well as raising her Humalog dosage from 38-44 units t.i.d. a.c. I will continue with Humalog supplemental scale support at moderate intensity and maintain blood glucose monitoring a.c. and at bedtime to conduct further therapeutic changes as needed. 2. Hypertension. The patient's level of blood pressure control is adequate for the time being. She is to continue with the current regimen of diltiazem. 3. Hyperlipidemia. The patient is currently on atorvastatin therapy and tolerates it well, she is to continue with the same. 4. Peripheral diabetic neuropathy. The patient is maintained on a regimen of amitriptyline, gabapentin, and Cymbalta. She has adequate control on this regimen. She is to continue with the same. I certainly appreciate this consultation by Dr. Mathis. <ELECTRONICALLY SIGNED> By: Judy Miller MD 08/14/19 0956 [id number] Judy Miller MD /nt
--- NOTE | 2019-08-14 13:59 | NUR ---
ON-GOING ASSESSMENT: CM REVIEWED CHART AND SPOKE WITH PATIENT. PT CONTINUES TO BE ON IV ANBX FOR VASCULITIS. PT ALSO REPORTS THAT SHE HAS A GLUCOMETER AT HOME WELL ALL HER SUPPLIES FOR INSULIN. PT STATES THAT SHE HAS NOT HAD HH IN THE PAST NOR BEEN TO AN ACUTE REHAB. CM DISCUSSED THAT PT DOES NOT QUALIFY FOR HH THERAPY SHE HAS MEDICAID BUT IF SHE FELT SHE NEEDED EXTRA THERAPY WE COULD LOOK INTO POSSIBLE ACUTE REHABS. PT REPORTS SHE IS GETTING AROUND OK IN HER ROOM AND DOES NOT FEEL SHE WOULD ACUTE REHAB AT THIS TIME. CM WILL CONTINUE TO FOLLOW TO ASSIST NEEDED.
--- NOTE | 2019-08-14 17:02 | NUR ---
PT DOING SOME BETTER. BLOOD GLUCOSE BETTER CONTROLLED NOW. RASH IMPROVING BUT STILL HAVING SOME PAIN IN RT LEG. MEDS HELP. SAT UP SEVERAL HOURS. IN GOOD SPIRITS.
[2019-08-14 17:22] VITALS: BP 147/84
[2019-08-14 19:11] VITALS: BP 143/78
--- NOTE | 2019-08-15 02:03 | NUR ---
RECIEVED CARE OF THIS PATIENT AT 1900. PATIENT ALERT AND ORIENTED X4. PATIENT UP IN CHAIR PART OF NIGHT. ACCUCHECK AT 2014 WAS 89. NO COVERAGE GIVEN. GLARGINE INSULIN HELD ALSO PER VIDEO PRESENTATION OPERATOR. AT 2224 ACCUCHECK WAS 84. SANDWICH WAS GIVEN AFTER BOTH OF THESE RESULTS. AT 0038 THE ACCUCHECK WAS ONLY 96. PATIENT NOT A FALL RISK. C/O PAIN, MED GIVEN.
[2019-08-15 05:01] VITALS: BP 132/81
[2019-08-15 05:56] LABS: INR 1.3; PROTIME 13.1 Seconds (9.3-11.4)
[2019-08-15 07:25] VITALS: BP 137/84
[2019-08-15] MEDS ORDERED: NYAMYC15 GM TOP (12:32)
[2019-08-15] MEDS ORDERED: HYDROCODON-ACE1 EAC7 PO (12:32)
[2019-08-15] MEDS ORDERED: LANTUS SUBQ (12:32)
[2019-08-15] MEDS ORDERED: COUMADIN 5 MG TA5 M1 PO (12:32)
[2019-08-15] MEDS ORDERED: HUMALOG100 UNIT/1 SUBQ (12:32)
[2019-08-15] MEDS ORDERED: CYMBALTA30 MG PO (12:32)
[2019-08-15] MEDS ORDERED: KEFLEX500 M2 PO (12:32)
[2019-08-15] MEDS ORDERED: ACETAMINOPHEN325 M1 PO (12:32)
[2019-08-15 14:34] VITALS: BP 137/84
--- NOTE | 2019-08-15 14:35 | NUR ---
ON-GOING ASSESSMENT: CM REVIEWED CHART AND SPOKE WITH PATIENT. PT HAS ORDERS TO DISCHARGE HOME TODAY WITH HH. CM DISCUSSED WITH PT WHO STATES SHE WAS HOPING SHE COULD GO TO A FACILITY DUE TO HER PAIN. CM DISCUSSED PT HAS MEDICAID SO SHE CANNOT GO TO A SNF. PT ASKED IF SHE COULD GO TO 5N ACUTE REHAB. OT VARIANCED PATIENT PT STATED SHE FELT SHE WAS BACK TO BASELINE. CM ALSO RELAYED PTS REQUEST TO ATTENDING. PT IS LIKELY TOO HIGH LEVEL FOR 5N. CM SPOKE WITH PT AGAIN AND DISCUSSED HH AND PT STATED SHE DOES NOT FEEL SHE NEEDS HH OR ANYONE TO COME TO HER HOME. PT STATES HER IS THERE TO HELP HER AND SHE CAN WRAP HER OWN LEGS. CM ENCOURAGED HH RN CAN LOOK AFTER PATIENTS LEGS AND MEDICATIONS/ETC. PT CONTINUES TO DECLINE HH AT THIS TIME. CM NOTIFIED ATTENDING OF PTS REFUSAL FOR HH.
[2019-08-15 15:41] VITALS: BP 137/84
[2019-08-15 16:28] VITALS: BP 137/84
== END 2019-08-15 16:44 | disposition home health service (06) | DRG 872 ==
LOC: ER 20:46 → 4W 08-12 01:32 → EROBS 08-12 01:32 → 4W 08-12 02:36 → 4S 08-13 21:48
PROVIDERS: Emergency Medicine; Hospitalist; Internal Medicine Infectious Disease; Nurse Practitioner Family; ADMIT Internal Medicine
DX: A41.9 Sepsis, unspecified organism (principal); L03.115 Cellulitis of right lower limb; Z68.44 Body mass index [BMI] 60.0-69.9, adult; I10 Essential (primary) hypertension; R65.20 Severe sepsis without septic shock; F32.9 Major depressive disorder, single episode, unspecified; E66.01 Morbid (severe) obesity due to excess calories; J44.9 Chronic obstructive pulmonary disease, unspecified; F41.9 Anxiety disorder, unspecified; E78.5 Hyperlipidemia, unspecified; K21.9 Gastro-esophageal reflux disease without esophagitis; E11.9 Type 2 diabetes mellitus without complications; Z88.6 Allergy status to analgesic agent; Z86.718 Personal history of other venous thrombosis and embolism; Z90.49 Acquired absence of other specified parts of digestive tract; Z88.1 Allergy status to other antibiotic agents; Z88.0 Allergy status to penicillin; Z91.14 Patient's other noncompliance with medication regimen; I77.6 Arteritis, unspecified; E11.42 Type 2 diabetes mellitus with diabetic polyneuropathy; M19.90 Unspecified osteoarthritis, unspecified site; N18.3 Chronic kidney disease, stage 3 (moderate)
CPT/HCPCS: 10040; 10195

== ENCOUNTER 2019-09-03 17:06 | Inpatient (IN) | payer OTHER ==
[~2019-09-03] VITALS: Ht 160 cm; Wt 176.4 kg
[~2019-09-03 17:06] MED LIST changes: +ACETAMINOPHEN325 M1 PO; +HYDROCODON-ACE1 EAC7 PO; +KEFLEX500 M2 PO
[2019-09-03 17:14] VITALS: BP 140/65
[2019-09-03] MEDS ORDERED: CLONIDINE HCL0.2 M2 PO (17:20)
[2019-09-03 18:04] LABS: ABSOLUTE NEUTROPHILS 6.1 thou/uL (1.4-8.2); BASOPHILS 1.2 % (0.0-2.0); EOSINOPHILS 1.2 % (0.0-3.0); HEMATOCRIT 42.4 % (37.0-47.0); HEMOGLOBIN 14.2 gm/dL (12.0-15.0); LYMPHOCYTES 22.1 % (24.0-44.0); MCH 27.6 pg (26.0-34.0); MCHC 33.5 g/dL (28.0-37.0); MCV 82.4 fL (80.0-100.0); MONOCYTES 4.5 % (1.0-8.0); PLATELET COUNT 336 thou/uL (150-400); RBC 5.15 mil/uL (4.20-5.00); RDW 15.3 % (10.5-14.5); WBC 8.6 thou/uL (4.0-11.0)
[2019-09-03 18:11] LABS: ANION GAP 7 mmol/L (7-16); BUN 11 mg/dL (7-18); CALCIUM 8.8 mg/dL (8.5-10.1); CHLORIDE 99 mmol/L (98-107); CO2 27 mmol/L (21-32); CREATININE 1.1 mg/dL (0.6-1.0); GLUCOSE 350 mg/dL (74-106); SODIUM 133 mmol/L (136-145)
[2019-09-03 18:20] LABS: APTT 41.3 Seconds (24.5-32.8); D-DIMER 0.23 ug/mLFEU (0.19-0.50); INR 1.4; PROTIME 14.8 Seconds (9.3-11.4)
[2019-09-03 18:22] LABS: ALBUMIN 2.3 g/dL (3.4-5.0); LIPASE 57 U/L (73-393); SGOT 13 U/L (15-37); SGPT 11 U/L (30-65); TOTAL BILIRUBIN 0.3 mg/dL (0.2-1.0); TROPONIN-I <0.06 ng/mL (<0.06)
[2019-09-03 21:49] VITALS: BP 146/71
[2019-09-03 22:02] VITALS: BP 147/91
[2019-09-03 22:18] VITALS: BP 144/74
--- NOTE | 2019-09-04 02:31 | NUR ---
ASSUMED CARE OF PT FROM ED AT 2215HRS. PT AOX4 AND LETS NEEDS BE KNOWN. FALL PRECAUTION IN PLACE. PT WAS ORIENTED TO THE UNIT AND HER ROOM. PT WAS ABLE TO ANSWER ALL ADMISSION RELATED QUESTIONS. PT IS ON TELE RUNNING SR/ST. SCDs HELD PENDING US R/O DVT. PT REPORTED PAIN AND WAS TREATED WITH PRN PAIN MEDS. ORDERS RECEIVED AND STARTED. PT WAS ABLE TO ANSWER ALL ADMISSION RELATED. PT USES CPAP AT HS. PT WAS ABLE TO COMFORTABLE AND SLEEP PART OF THE SHIFT. VSS AND NO S/S OF ACUTE DISTRESS. WILL CONTINUE TO MONITOR.
[2019-09-04 03:33] VITALS: BP 100/48
[2019-09-04 06:12] LABS: HEMATOCRIT 40.6 % (37.0-47.0); HEMOGLOBIN 13.6 gm/dL (12.0-15.0); MCH 27.9 pg (26.0-34.0); MCHC 33.5 g/dL (28.0-37.0); MCV 83.1 fL (80.0-100.0); RBC 4.88 mil/uL (4.20-5.00); RDW 15.2 % (10.5-14.5); WBC 9.1 thou/uL (4.0-11.0)
[2019-09-04 06:25] LABS: INR 1.3; PROTIME 13.5 Seconds (9.3-11.4)
[2019-09-04 06:37] LABS: ANION GAP 6 mmol/L (7-16); BUN 14 mg/dL (7-18); CALCIUM 8.4 mg/dL (8.5-10.1); CHLORIDE 96 mmol/L (98-107); CO2 28 mmol/L (21-32); CREATININE 1.4 mg/dL (0.6-1.0); GLUCOSE 356 mg/dL (74-106); POTASSIUM 3.9 mmol/L (3.5-5.1); SODIUM 130 mmol/L (136-145); TROPONIN-I <0.06 ng/mL (<0.06)
--- NOTE | 2019-09-04 07:59 | NUR ---
Pt with class III extreme obesity, BMI 68.9. Recently discharged, now admitted with chest pain and PE. Hx HTN, DM poorly controlled. Last A1C 10.8. Wts are highly variable and pt with 3+ bilateral lower extremity edema. Has carb control diet ordered, aware of alternative menu. Low nutrition risk
--- NOTE | 2019-09-04 08:04 | EKG ---
[facility] [place] [address] ELECTROCARDIOGRAM REPORT Name: AYAH EVANS Room #: 449-I ADM IN M.R.#: [id number] Admission: 09/03/19 Attend Phys: Eric Alvarado MD Discharge: Date of : 75 Report #: [id number] THIS REPORT FOR: cc: JAYANT Guerra family physician/PCP JAYANT - Mari family physician/PCP Vijay Riddle MD [facility] THIS REPORT FOR: //name// [facility] ED Test Date: 2019-09-03 Test Time: 17:33:58 Pat Name: AYAH EVANS Department: Room: [facility] Gender: F Multimedia Teacher: MING : 1975 Requested By: Azalia Cason Order Number: [id number] MD: Vijay Riddle Measurements Intervals [place] Rate: 110 P: 48 AL: 139 QRS: 40 QRSD: 125 T: -10 QT: 333 QTc: 451 Interpretive Statements Sinus tachycardia Inferior infarct, old Baseline wander in lead(s) V1,V2 Compared to ECG 04/23/2019 17:35:30 No significant change was found Electronically Signed On 09-04-2019 8:04:07 CDT by Vijay Riddle [email or web address] <ELECTRONICALLY SIGNED> By: Vijay Riddle MD, [facility] 09/04/19 0804 [id number] 1733 Vijay Riddle MD, [facility] /EPI
[2019-09-04 08:38] VITALS: BP 144/71
--- NOTE | 2019-09-04 09:20 | 2DMMODE ---
[facility] [place] [address] 2 D/M-MODE ECHOCARDIOGRAM Name: AYAH EVANS Room #: 449-I ADM IN M.R.#: [id number] Admission: 09/03/19 Attend Phys: Eric Alvarado MD Discharge: Date of : 75 Report #: [id number] THIS REPORT FOR: cc: FAM - No family physician/PCP FAM - No family physician/PCP Vijay Riddle MD [facility] ~ APPROVED REPORT Study performed: 09/04/2019 07:51:25 EXAM: Comprehensive 2D, Doppler, and color-flow Echocardiogram Patient Location: Bedside Status: routine BSA: 2.54 HR: 90 bpm BP: 144/74 mmHg Rhythm: NSR Other Information Study Quality: Technically Difficult Technically limited study due to body habitus, inability to position patient. Indications Pulmonary Embolism Chest Pain Morbid obesity Echo Enhancing Agent Indication: Endocardial border delineation Agent(s) / Amount(s) Used: Optison 4 cc Aortic Valve AoV Peak Abdirahman.: 1.03 m/s AO Peak Gr.: 4.20 mmHg Pulmonary Valve PV Peak Abdirahman.: 1.18 m/s PV Peak Gr.: 5.57 mmHg Left Ventricle The left ventricle is normal size. There is normal LV segmental wall motion. There is normal left ventricular wall thickness. The left ventricular systolic function is normal. The left ventricular [facility] [place] [address] 2 D/M-MODE ECHOCARDIOGRAM Name: AYAH EVANS Room #: 449-I ADM IN M.R.#: [id number] Admission: 09/03/19 Attend Phys: Eric Alvarado MD Discharge: Date of : 75 Report #: [id number] ejection fraction is within the normal range. LVEF is 55-60%. This study is not technically sufficient to allow evaluation of the LV diastolic function. Right Ventricle Right ventricle is not well visualized. Right ventricular systolic function is grossly normal. Atria The left atrium size is normal. Right atrium is not well visualized. Aortic Valve The aortic valve is not well visualized. No aortic regurgitation is present. There is no aortic valvular stenosis. Mitral Valve The mitral valve is normal in structure. There is no mitral valve regurgitation noted. No evidence of mitral valve stenosis. Tricuspid Valve Tricuspid valve is not well visualized. There is no tricuspid valve regurgitation noted. Pulmonic Valve Pulmonic valve is not well visualized. There is no pulmonic valvular regurgitation. Great Vessels The aortic root is normal in size. The inferior vena cava is not well visualized. Pericardium There is no pericardial effusion. <Conclusion> Very limited study The left ventricular systolic function is normal. There is normal LV segmental wall motion. LVEF 55-60%. The aortic valve is not well visualized. No aortic stenosis or insufficiency. The mitral valve is normal in structure. No mitral valve regurgitation Pulmonary artery systolic pressure could not be reliably [facility] [address] [place] [address] 2 D/M-MODE ECHOCARDIOGRAM Name: AYAH EVANS Kaden Room #: 449-I ADM IN M.R.#: [id number] Admission: 09/03/19 Attend Phys: Eric Alvarado MD Discharge: Date of : 75 Report #: [id number] ascertained. There is no pericardial effusion. <ELECTRONICALLY SIGNED> By: Vijay Riddle MD, FAC 09/04/19918 8 8 Vijay Riddle MD, FACC /INF
--- NOTE | 2019-09-04 12:03 | NUR ---
PT ADMITTED RELATED TO BILATERAL PE, LEG PAIN. CM REVIEWED CHART AND SPOKE WITH CARE TEAM. CM CALLED AND SPOKE WITH PT AT BEDSIDE THIS DAY. PT APPERED TO BE A&O X4. CM ROLE INTRODUCED. PT INDICATED SHE LIVES IN A HOUSE WITH HER SPOUSE, BROTHER, AND SISTER IN LAW WITH 2 STEPS TO ENTER AND NO STEPS INSIDE. PT INDICATED SHE HAS A 4WW, A CPAP THROUGH [facility], AND HOME A2 AT 2L CONTINUOUSE APPLICATION DEVELOPMENT DIRECTOR THROUGH [facility]. PT HAD BEEN HERE AND DC'S HOME 08/14 TO SELF CARE AFTER REFUSING HH SERVICES. PT INDICATED SHE PLANS TO RETURN HOME ONCE MEDICALLY STABLE. PT INDICATED SHE WOULD SEE HOW SHE FELT ABOUT HH DC NEARS. CM TO FOLLOW INDICATED WITH DC PLANNING.
--- NOTE | 2019-09-04 17:19 | NUR ---
ASSESSMENT DOCUMENTED. VSS. SR ON THE MONITOR. PT RESTING IN CHAIR WITH CALL LIGHT IN REACH. WILL CONTINUE TO MONITOR.
--- NOTE | 2019-09-05 04:34 | NUR ---
ASSUMED CARE OF PT AT 1900HRS. PT AOX4 AND LETS NEEDS BE KNOWN. FALL PRECAUTION IN PLACE. PT REPORTED SOME PAIN AND WAS TREATED WITH PRNS. PT DENIED SOA OR NAUSEA. ASSESSMENT CHARTED. PT WAS ABLE TO SLEEP PART OF THE SHIFT WITH CPAP ON. VSS AND NO S/S OF ACUTE DISTRESS. WILL CONTINUE TO MONITOR.
[2019-09-05 05:40] VITALS: BP 126/76
[2019-09-05 06:25] LABS: CALCIUM 8.4 mg/dL (8.5-10.1); CREATININE 1.3 mg/dL (0.6-1.0); MAGNESIUM 1.6 mg/dL (1.8-2.4); POTASSIUM 3.8 mmol/L (3.5-5.1)
--- NOTE | 2019-09-05 10:58 | HC ---
[facility] [place] [address] CONSULTATION Name: [facility]YAH EVANS [facility] [id number] Admission: 09/03/19 Attend Phys: Eric Alvarado MD Discharge: Date of : 75 Report #: [id number] THIS REPORT FOR: cc: JAYANT Guerra family physician/PCP JAYANT Guerra family physician/PCP Judy Miller MD ~ CC: JAYANT physician/PCP Eric Alvarado DATE OF SERVICE: 09/04/2019 ENDOCRINE CONSULTATION NOTE CONSULTING PHYSICIAN: Dr. Alvarado. REASON FOR CONSULTATION: Uncontrolled type 2 diabetes mellitus, severe hyperglycemia. HISTORY OF PRESENT ILLNESS: This is a 44-year-old female patient who has an extensive medical background that is noted for type 2 diabetes mellitus, morbid obesity, hypertension, hyperlipidemia as well as recurrent pulmonary embolisms. The patient was admitted yesterday as she presented with complaints of progressive shortness of breath and chest discomfort for the few days preceding presentation and was found to have bilateral PEs, upon which she was admitted for further care and monitoring. The patient has been known to have type 2 diabetes mellitus for many years and her most recent insulin regimen consisted of Lantus insulin 50 units b.i.d., Humalog insulin 25 units t.i.d. a.c. She notes that her glycemic control over the past few weeks has been lacking with blood glucose values running consistently above 300 mg/dL. She denies having had issues with hypoglycemia in the past few weeks. The patient is not known to have diabetic retinopathy or diabetic nephropathy. She has intermittent issues with peripheral numbness and tingling. The patient is not known to have coronary artery disease. As noted above, the patient also is known to have hypertension and is maintained on diltiazem ER 120 mg daily, clonidine 0.1 mg b.i.d., Aldactone 25 mg p.o. b.i.d. She is also hyperlipidemic and is maintained on simvastatin 20 mg at bedtime. REVIEW OF SYSTEMS: CONSTITUTIONAL: Fatigue, tiredness, no fever, chills or body weight changes. HEENT: Negative for sore throat, sinus pain or ear drainage. [facility] [address] [place] [address] CONSULTATION Name: AYAH EVANS Room #: 449-I [facility] IN .[place] Kay.#: [id number] Admission: 09/03/19 Attend Phys: Eric Alvarado MD Discharge: Date of : 75 Report #: [id number] PULMONARY: Shortness of breath, chest pain, cough, but no hemoptysis. CARDIAC: Chest pain, intermittent palpitations, no syncope or presyncope. GASTROINTESTINAL: Occasional issues with abdominal distention, abdominal discomfort, nausea, but no vomiting. NEUROLOGY: Peripheral numbness baseline issues with peripheral neuropathy, but not loss of consciousness or seizure activity, no severe frequent headaches. PSYCHIATRIC: Negative for delusions, hallucinations. Otherwise, the review of systems is noncontributory other than those mentioned in HPI. PAST MEDICAL HISTORY: 1. Type 2 diabetes mellitus. 2. Peripheral diabetic neuropathy. 3. Hypertension. 4. Hyperlipidemia. 5. Morbid obesity. 6. Anxiety. 7. GERD. 8. COPD. 9. History of cellulitis and sepsis. 10. Multiple episodes of DVT and PE. OUTPATIENT MEDICATIONS: Include albuterol q.6 hours p.r.n., vitamin D3 25 mcg daily, loratadine 10 mg at bedtime, diltiazem ER 120 mg daily, gabapentin 300 mg b.i.d., Requip 1 mg at bedtime, trazodone 50 mg at bedtime, amitriptyline 100 mg at bedtime, Singulair 10 mg daily, simvastatin 20 mg at bedtime, clonidine 0.1 mg p.o. b.i.d., multivitamin daily, spironolactone 25 mg b.i.d., Xanax 0.25 mg t.i.d. p.r.n. anxiety, omeprazole 1 capsule p.o. b.i.d., Bupropion XL 300 mg p.o. daily, Antivert 25 mg q.i.d. p.r.n., Coumadin 7.5 mg daily, Cymbalta 90 mg at bedtime, Lantus insulin 50 units b.i.d., Humalog insulin 25 units t.i.d. a.c. ALLERGIES: THE PATIENT IS ALLERGIC TO HYDROMORPHONE, LEVAQUIN AND PENICILLINS. FAMILY HISTORY: Noncontributory. SOCIAL HISTORY: The patient denies use of tobacco, alcohol or illicit drugs. PHYSICAL EXAMINATION: GENERAL: Pleasant female patient, sitting upright, appears comfortable, not in apparent distress. VITAL SIGNS: Blood pressure is 144/71 mmHg, heart rate is 92 beats per minute, respiration 18 per minute, temperature 36.6 degrees Celsius. CONSTITUTIONAL: The patient is sitting upright in bed, appears comfortable, not in apparent distress. She is morbidly obese. HEENT: Anicteric sclerae. Intact extraocular motions. NECK: Supple, without JVD or thyromegaly. [facility] [address] [place] [address] CONSULTATION Name: AYAH EVANS Room #: 449-I ADM IN Jens#: [id number] Admission: 09/03/19 Attend Phys: Eric Alvarado MD Discharge: Date of : 75 Report #: [id number] CHEST: Noted for distant breath sounds, limited air entry, bilateral rales, no crackles. HEART: Regular rate and rhythm without murmurs or gallops. ABDOMEN: Soft, lax. No guarding. Active bowel sounds. EXTREMITIES: Lower extremity exam noted for ankle edema bilaterally with diminished sensation to light touch over both feet. NEUROLOGIC: Awake, alert and oriented to time, place and person. The remainder of her examination is nonfocal other than for peripheral sensory deficits. PSYCHIATRIC: Pleasant, interactive. Normal mood and affect. Normal thought process. LABORATORY RESULTS: Blood glucose on arrival was 325, then 439, then 356 and then finally 193 mg/dL. Sodium 130, potassium 3.9, chloride 96, CO2 of 28, anion gap 6, BUN 14, creatinine 1.4, AST 13, lipase 57, total bilirubin 0.3, calcium 8.4, magnesium 1.9, alkaline phosphatase 158, ALT 11, total protein 6.0, albumin 2.3, EGFR 41, lactic acid 1.4. INR 1.3. White blood count 9.1, hemoglobin 13.6, hematocrit 40.6, platelets 350. Hemoglobin A1c on 08/13/2019 was 10.8%. ASSESSMENT AND PLAN: 1. Type 2 diabetes mellitus. Uncontrolled and marked by a large insulin dose requirement and persistently elevated hemoglobin A1c and severe hyperglycemia. I suspect an element of noncompliance as the patient tends to do rather well on the same regimen when admitted. During this admission, the patient has been placed on her usual dose of Lantus at 50 units twice a day, but on a heightened dose of Humalog for meals at 35 units with meals. Given the rapid drop in her blood glucose values to under 200, I will taper down her meal insulin coverage to 28 units t.i.d. a.c. and lower her Lantus to 45 units twice a day while we maintain coverage with Humalog supplemental scale to be utilized as needed. Blood glucose monitoring will commence a.c. and at bedtime and further adjustments to her insulin regimen will be introduced as needed. 2. Hyperlipidemia. The patient is currently placed on atorvastatin therapy and she tolerates it well, she is to continue with the same. 3. Hypertension. The patient's level of blood pressure control is adequate on the current regimen, she is to continue with the same. 4. Pulmonary embolism. The patient was found to have bilateral pulmonary embolisms on admission. She was admitted for further care and monitoring. Anticoagulation management is as per the primary hospital Medicine team. 5. Diabetic neuropathy. The patient has baseline issues with peripheral diabetic neuropathy. She is being placed on a combination of amitriptyline 100 mg at bedtime, Cymbalta 90 mg at bedtime in addition to pain medicines as needed. She [place] [address] CONSULTATION Name: AYAH EVANS Room #: 449-I ADM IN M.R.#: [id number] Admission: 09/03/19 Attend Phys: Eric Alvarado MD Discharge: Date of : 75 Report #: [id number] I have reviewed the patient's clinical care notes, laboratory data, radiology data, and other pertinent clinical information past and present for over 35 minutes in addition to my encounter time with the patient. I certainly appreciate this consultation by Dr. Alvarado. <ELECTRONICALLY SIGNED> By: Judy Miller MD 09/05/19 1058 1711 1833 Judy Miller MD /nt
--- NOTE | 2019-09-05 13:05 | NUR ---
Received awake on bed. Due medications given as prescribed, able to swallow meds w/o difficulty.Vital signs stable. On telemetry, strips attached to chart; SR-ST; no complaints of chest pain, crushing and heaviness sensation. On room air during daytime, CPAP at night. On carb controlled diet; tolerating well; no nausea, no vomiting and no abdominal pain noted. On blood sugar monitoring-taken and recorded- with sliding scale insulin ordered-given as prescribed. Continent of bowel and bladder; able to go to the toilet with standby assist; using walker and gait belt. Falls bundle in place, assisted in ADLs. With SL at L FA- intact and flushing well. Complained of pain, due PRN pain meds given as prescribed-with partial relief. Complained of nausea, PRN anti emetic given as prescribed, with complete relief. To continue monitoring patient.
[2019-09-05 15:34] VITALS: BP 128/84
--- NOTE | 2019-09-05 16:12 | NUR ---
PT AND OT INDICATED THAT PT WOULD LIKELY E SAFE TO RETURN HOME ONCE MEDICALLY STABLE. PT IS UP AD KATHRINE IN HER ROOM. CM TO FOLLOW INDICATED WITH DC PLANNING.
[2019-09-05 19:20] VITALS: BP 144/74
--- NOTE | 2019-09-06 02:51 | NUR ---
PATIENT AOX4 MAKES NEEDS KNOWN. PAIN CONTROLLED THIS SHIFT, PATIENT HAD A SHOWER THIS SHIFT. CALL LIGHT AND PERSONAL ITEM WITHIN REACH.PATIENT IN BED ASLEEP AT THIS TIME BREATHING REGULAR AND UNLABOURED.
[2019-09-06 07:16] VITALS: BP 149/80
[2019-09-06] MEDS ORDERED: HUMALOG100 UNIT/1 SUBQ (12:15)
[2019-09-06] MEDS ORDERED: ELIQUIS5 MG PO (12:15)
[2019-09-06] MEDS ORDERED: LANTUS SUBQ (12:15)
[2019-09-06 12:20] LABS: CALCIUM 8.8 mg/dL (8.5-10.1); CREATININE 1.2 mg/dL (0.6-1.0); POTASSIUM 4.2 mmol/L (3.5-5.1)
[2019-09-06 12:53] VITALS: BP 149/80
--- NOTE | 2019-09-06 14:36 | NUR ---
CARE TEAM INDIATED THAT PT IS MEDICALLY STABLE TO DC HOME THIS DAY. PT HAD REFUSED HH UPON PREVIOUS DISCHARGES SO PT IT TO BE DISCHARGED HOME TO SELF CARE. NO OTHER CM INTERVENTION INDICATED. CASE CLOSED.
--- NOTE | 2019-09-06 16:09 | NUR ---
PT IS A&OX3, PT 'S VS ARE STABLE , PT GETS UP WITH WALKER TO BATHROOM, PT DENIES SOB , PT'S PAIN CAN CONTROL BY MEDICATIONS, RN HAS RECEIVED ORDER TO DC PT TO HOME, RN HAS GIVING DC TEACHING , PT UNDERSTANDS WELL , PT'S WILL PICK PT TO HOME SOON.
--- NOTE | 2019-09-06 16:29 | NUR ---
PT'S PICKED UP PT TO GO HOME AT 1620PM.
== END 2019-09-06 17:46 | disposition home or self-care (01) | DRG 175 ==
LOC: ER 17:06 → EROBS 21:15 → 4W 22:06
PROVIDERS: Nurse Practitioner Family; Physician Assistant; ADMIT Internal Medicine; ATTEND Internal Medicine
PROC: 5A09457 Assistance with Respiratory Ventilation, 24-96 Consecutive Hours, Continuous Positive Airway Pressure (ICD-10-PCS; principal; 2019-09-03)
DX: I26.99 Other pulmonary embolism without acute cor pulmonale (principal); E43 Unspecified severe protein-calorie malnutrition; D68.59 Other primary thrombophilia; E87.1 Hypo-osmolality and hyponatremia; Z68.44 Body mass index [BMI] 60.0-69.9, adult; F32.9 Major depressive disorder, single episode, unspecified; E66.01 Morbid (severe) obesity due to excess calories; F41.9 Anxiety disorder, unspecified; E78.5 Hyperlipidemia, unspecified; E11.42 Type 2 diabetes mellitus with diabetic polyneuropathy; N18.3 Chronic kidney disease, stage 3 (moderate); K21.9 Gastro-esophageal reflux disease without esophagitis; E11.22 Type 2 diabetes mellitus with diabetic chronic kidney disease; I12.9 Hypertensive chronic kidney disease with stage 1 through stage 4 chronic kidney disease, or unspecified chronic kidney disease; J44.9 Chronic obstructive pulmonary disease, unspecified; Z88.6 Allergy status to analgesic agent; Z86.718 Personal history of other venous thrombosis and embolism; Z90.49 Acquired absence of other specified parts of digestive tract; Z88.1 Allergy status to other antibiotic agents; Z88.0 Allergy status to penicillin; Z91.19 Patient's noncompliance with other medical treatment and regimen; Z79.899 Other long term (current) drug therapy
CPT/HCPCS: 10045

== ENCOUNTER 2019-09-12 17:35 | Emergency (ER) | payer OTHER ==
[~2019-09-12] VITALS: Ht 160 cm; Wt 83.9 kg
--- NOTE | ~2019-09-12 | EKG ---
[facility] [place] [address] ELECTROCARDIOGRAM REPORT Name: AYAH EVANS Kaden [id number] Admission: 09/12/19 Attend Phys: Discharge: 09/13/19 Date of : 75 Report #: [id number] THIS REPORT FOR: cc: JAYANT - Mari family physician/PCP JAYANT - No family physician/PCP Jed Adkins MD ~ THIS REPORT FOR: //name// [facility] ED Test Date: 2019-09-12 Test Time: 20:29:24 Pat Name: AYAH EVANS Department: Room: Gender: F Carrier Driver: : 1975 Requested By: Kimberly Bear Order Number: [id number] MD: Measurements Intervals [place] Rate: 61 P: 46 [place]: 160 QRS: -28 QRSD: 91 T: 2 QT: 405 QTc: 408 Interpretive Statements Sinus rhythm LVH by voltage Compared to ECG 09/12/2019 20:17:48 Left ventricular hypertrophy now present Intraventricular conduction delay no longer present Myocardial infarct finding no longer present [email or web address] By: 28 28 Epiphany EpiphanyMD /EPI
[~2019-09-12 17:35] MED LIST changes: +CLONIDINE HCL0.2 M2 PO
[2019-09-12 20:25] LABS: HEMATOCRIT 39.5 % (37.0-47.0); HEMOGLOBIN 12.9 gm/dL (12.0-15.0); MCHC 32.8 g/dL (28.0-37.0); MCV 85.4 fL (80.0-100.0); RBC 4.62 mil/uL (4.20-5.00); RDW 15.5 % (10.5-14.5); WBC 10.8 thou/uL (4.0-11.0)
[2019-09-12 20:42] LABS: ANION GAP 10 mmol/L (7-16); BUN 14 mg/dL (7-18); CALCIUM 8.5 mg/dL (8.5-10.1); CHLORIDE 103 mmol/L (98-107); CO2 23 mmol/L (21-32); CREATININE 1.2 mg/dL (0.6-1.0); GLUCOSE 237 mg/dL (74-106); POTASSIUM 3.8 mmol/L (3.5-5.1); SODIUM 136 mmol/L (136-145)
[2019-09-12 20:46] LABS: ALBUMIN 2.1 g/dL (3.4-5.0); LIPASE 58 U/L (73-393); SGOT 14 U/L (15-37); SGPT 16 U/L (30-65); TOTAL BILIRUBIN 0.1 mg/dL (0.2-1.0); TOTAL PROTEIN 5.9 g/dL (6.4-8.2); TROPONIN-I <0.06 ng/mL (<0.06)
[2019-09-12 21:54] LABS: URINE BILIRUBIN 1+ (Negative); URINE BLOOD TRACE (Negative); URINE CLARITY SL CLOUDY; URINE COLOR YELLOW; URINE GLUCOSE-RANDOM* 1+ (Negative); URINE KETONES NEGATIVE (Negative); URINE LEUKOCYTES-REFLEX NEGATIVE (Negative); URINE NITRITE-REFLEX NEGATIVE (Negative); URINE PROTEIN (DIPSTICK) 3+ (Negative); URINE SPECIFIC GRAVITY >= 1.030 (1.005-1.035); URINE UROBILINOGEN 0.2 E.U./dl (0.2-1.0)
[2019-09-12 22:03] LABS: CRYSTALS None Seen /LPF (None Seen); HYALINE CASTS 0-3 Few /LPF (None Seen); MUCUS 0-3 Light strn/LPF (None Seen); SQUAMOUS 4-10 Moderate /LPF (0-3); URINE RBC 0-2 Rare /HPF (0-2)
[2019-09-13 00:31] VITALS: BP 130/68
--- NOTE | 2019-09-13 08:59 | EKG ---
[facility] [place] [place] [address] ELECTROCARDIOGRAM REPORT Name: AYAH EVANS Room #: DEP [facility]#: [id number] Admission: 09/12/19 Attend Phys: Discharge: 09/13/19 Date of : 75 Report #: [id number] THIS REPORT FOR: cc: JAYANT - No family physician/PCP JAYANT - No family physician/PCP Vijay Riddle MD [facility] THIS REPORT FOR: //name// [facility] ED Test Date: 2019-09-12 Test Time: 20:17:48 Pat Name: AYAH EVANS Department: Room: Gender: F Senior Water/Wastewater Engineer: : 1975 Requested By: Kimberly Bear Order Number: [id number] MD: Vijay Riddle Measurements Intervals [place] Rate: 91 P: 44 [place]: 124 QRS: 43 QRSD: 135 T: 6 QT: 380 QTc: 468 Interpretive Statements Sinus rhythm Nonspecific intraventricular conduction delay Small inferior and lateral Q waves Compared to ECG 09/03/2019 17:33:58 No significant change was found Electronically Signed On 09-13-2019 8:59:04 CDT by Vijay Riddle [email or web address] <ELECTRONICALLY SIGNED> By: Vijay Riddle MD, FAC 09/13/19 0859 16 16 Vijay Riddle MD, [facility] /EPI
== END 2019-09-13 00:30 | disposition home or self-care (01) ==
LOC: ER 17:35
PROVIDERS: Student in an Organized Health Care Education/Training Program
DX: B37.2 Candidiasis of skin and nail (principal); M54.5 Low back pain; I12.9 Hypertensive chronic kidney disease with stage 1 through stage 4 chronic kidney disease, or unspecified chronic kidney disease; E11.22 Type 2 diabetes mellitus with diabetic chronic kidney disease; N18.3 Chronic kidney disease, stage 3 (moderate); J44.9 Chronic obstructive pulmonary disease, unspecified; K21.9 Gastro-esophageal reflux disease without esophagitis; E78.5 Hyperlipidemia, unspecified; F17.210 Nicotine dependence, cigarettes, uncomplicated; Z79.4 Long term (current) use of insulin; Z79.899 Other long term (current) drug therapy; Z88.0 Allergy status to penicillin; Z88.1 Allergy status to other antibiotic agents; Z88.5 Allergy status to narcotic agent

== ENCOUNTER 2019-09-30 14:53 | Inpatient (IN) | payer OTHER ==
[~2019-09-30] VITALS: Ht 160 cm; Wt 149.7 kg
[~2019-09-30 14:53] MED LIST changes: +MACROBID 100 M100 MG PO; +NORCO 5-325 TA1 EAC2 PO
[2019-09-30 14:58] VITALS: BP 115/63
[2019-09-30 15:51] LABS: URINE BILIRUBIN NEGATIVE (Negative); URINE BLOOD TRACE (Negative); URINE CLARITY CLEAR; URINE COLOR YELLOW; URINE GLUCOSE-RANDOM* 3+ (Negative); URINE KETONES NEGATIVE (Negative); URINE LEUKOCYTES-REFLEX NEGATIVE (Negative); URINE NITRITE-REFLEX NEGATIVE (Negative); URINE PROTEIN (DIPSTICK) 3+ (Negative); URINE UROBILINOGEN 0.2 E.U./dl (0.2-1.0)
[2019-09-30 15:54] LABS: BACTERIA-REFLEX 1-9 Few /HPF (None Seen); CRYSTALS None Seen /LPF (None Seen); SQUAMOUS 4-10 Moderate /LPF (0-3); URINE RBC None Seen /HPF (0-2); URINE WBC-REFLEX None Seen /HPF (0-5)
[2019-09-30 15:56] LABS: ABSOLUTE NEUTROPHILS 3.9 thou/uL (1.4-8.2); BASOPHILS 1.3 % (0.0-2.0); HEMATOCRIT 40.1 % (37.0-47.0); HEMOGLOBIN 13.5 gm/dL (12.0-15.0); LYMPHOCYTES 24.7 % (24.0-44.0); MCH 28.3 pg (26.0-34.0); MCHC 33.6 g/dL (28.0-37.0); MCV 84.3 fL (80.0-100.0); MONOCYTES 4.7 % (1.0-8.0); PLATELET COUNT 287 thou/uL (150-400); POLYS 68.3 % (36.0-66.0); RBC 4.76 mil/uL (4.20-5.00); RDW 16.5 % (10.5-14.5); WBC 5.7 thou/uL (4.0-11.0)
[2019-09-30 16:06] LABS: CALCIUM 8.9 mg/dL (8.5-10.1); CREATININE 1.1 mg/dL (0.6-1.0); POTASSIUM 4.4 mmol/L (3.5-5.1)
[2019-09-30 16:12] LABS: ALBUMIN 2.3 g/dL (3.4-5.0); TOTAL BILIRUBIN 0.2 mg/dL (0.2-1.0); TOTAL PROTEIN 5.9 g/dL (6.4-8.2)
[2019-09-30 18:18] LABS: BE(vivo) -3.5 mmol/L (-2 to +3); HCO3 20.7 mmol/L (22.0-26.0); PO2 90.2 mmHg (80.0-100.0); sO2 96.9 % (92.0-98.0)
[2019-09-30 18:23] VITALS: BP 150/66
[2019-09-30 18:36] VITALS: BP 158/70
--- NOTE | 2019-09-30 18:41 | NUR ---
ATTEMPTED TO GIVE REPORT TO MADDY MOELLER ON 3W, SHE ADVISED ME TO CB IN 15 MINUTES TO GIVE REPORT TO PHOTOGRAPH INSPECTOR
[2019-09-30 19:20] VITALS: BP 1468/74
[2019-09-30 20:44] VITALS: BP 152/87
[2019-10-01 00:09] VITALS: BP 153/81
--- NOTE | 2019-10-01 03:58 | NUR ---
PATIENT NEW ADMIT YESTERDAY AROUND 1999. ALERT AND ORIENTED. VITAL SIGNS STABLE. PT C/O LEFT ABDOMINAL PAIN RATING IT /10. IMCU SPECIALIST NOTIFIED FOR PAIN MEDS. PT ALSO NOTED TO BE POLYDIPSIA, NOC BG 369, INSULIN PER SLIDING SCALE. PT ENCOURAGED TO CONTROL HER INTAKE. ADMISSION ASSESSMENT COMPLETE DOCUMENTED. PT ORIENTED TO ROOM AND CALL LIGHT SYSTEM. VERBAL CONSENT OBTAINED FOR PAPERWORK. WILL CONTINUE TO MONITOR AND FOLLOW POC. PT CURRENTLY RESTING. DENIES NAUSEA OR VOMITING, MINIMAL CHEST DISCOMFORT. WILL CONTINUE TO MONITOR
[2019-10-01 04:57] VITALS: BP 148/91
[2019-10-01 06:37] LABS: ABSOLUTE NEUTROPHILS 7.2 thou/uL (1.4-8.2); BASOPHILS 0.3 % (0.0-2.0); HEMATOCRIT 41.4 % (37.0-47.0); HEMOGLOBIN 13.7 gm/dL (12.0-15.0); LYMPHOCYTES 9.4 % (24.0-44.0); MCH 28.1 pg (26.0-34.0); MCHC 33.1 g/dL (28.0-37.0); MCV 85.1 fL (80.0-100.0); MONOCYTES 0.7 % (1.0-8.0); PLATELET COUNT 304 thou/uL (150-400); POLYS 89.6 % (36.0-66.0); RBC 4.87 mil/uL (4.20-5.00); RDW 16.1 % (10.5-14.5)
[2019-10-01 07:11] LABS: ALBUMIN 2.5 g/dL (3.4-5.0); CALCIUM 8.5 mg/dL (8.5-10.1); CREATININE 1.3 mg/dL (0.6-1.0); PHOSPHORUS 3.5 mg/dL (2.5-4.9); POTASSIUM 4.7 mmol/L (3.5-5.1); TOTAL BILIRUBIN 0.3 mg/dL (0.2-1.0); TOTAL PROTEIN 6.3 g/dL (6.4-8.2)
--- NOTE | 2019-10-01 08:25 | EKG ---
[facility] [place] [address] ELECTROCARDIOGRAM REPORT Name: AYAH EVANS Room #: [facility]- ADM IN M.R.#: [id number] Admission: 09/30/19 Attend Phys: Lucrecia Melton MD Discharge: Date of : 75 Report #: [id number] THIS REPORT FOR: cc: JAYANT - Mari family physician/PCP JAYANT - Mari family physician/PCP Vijay Riddle MD [facility] THIS REPORT FOR: //name// [facility] ED Test Date: 2019-09-30 Test Time: 15:27:31 Pat Name: AYAH EVANS Department: Room: [facility] Gender: F Mobile Nurse: fatou : 1975 Requested By: Brooklyn Griggs Order Number: [id number] MD: Vijay Riddle Measurements Intervals [place] Rate: 85 P: 26 [place]: 124 QRS: 21 QRSD: 134 T: 14 QT: 395 QTc: 470 Interpretive Statements Sinus rhythm Nonspecific intraventricular conduction delay Inferior infarct, age indeterminate Compared to ECG 09/26/2019 17:44:55 No significant changes Electronically Signed On 10-01-2019 8:25:17 CDT by Vijay Riddle [email or web address] <ELECTRONICALLY SIGNED> By: Vijay Riddle MD, [facility] 10/01/19 0825 1527 1527 Vijay Riddle MD, [facility] /EPI
[2019-10-01 08:40] VITALS: BP 136/80
[2019-10-01 11:57] VITALS: BP 131/81
[2019-10-01 16:53] VITALS: BP 152/80
--- NOTE | 2019-10-01 17:45 | NUR ---
PT IS A&OX3, PT'S VS ARE STABLE, RN HAS CALLED DR TO REPORT PT'S HIGH BS,PT IS CONTINUING IV ABX AND BS MANAGEMENT,
--- NOTE | 2019-10-01 17:48 | NUR ---
PT'S FIRST COVID WAS NEGATIVE FROM 09/30/19 TEST, PT HAS SECOND COVID TEST AT 09/30/1600PM PER ORDER, BECAUSE PT HAS ABNORMAL CHEST CT SCAN RESULT,
[2019-10-01 19:30] VITALS: BP 143/82
--- NOTE | 2019-10-02 03:43 | NUR ---
ASSUMED CARE FROM DAY , PT UP IN CHAIR PT REQUESTING SNACK AND SANDWICHES EVERY 2-3 HOURS, AND SODA ,LEGS SWOLLEN 2+ EDEMA NOTED. WELDER METAL FAB SHOWS NSR , DISCUSS PLAN OF CARE VEBALIZED UNDERSTANDING. DENIES SOB , BUT C/O UPPER ABD [PAIN , WANTED IV PAIN MEDICATION WITH BOX LUNCH. PT AWAKE THROUGHOUT THE NIGHT, WILL CONTINUE WITH PT CARE OF PLAN.
[2019-10-02 05:05] VITALS: BP 138/85
--- NOTE | 2019-10-02 05:15 | NUR ---
PT HAD 17 BEAT V-TACH PT WAS SLEEPING , BP 138/85 HR 83 , EMBEDDED CASE MANAGER NANU NOTIFIED CALL LAB TO DRAWN AM LAB NOW, CHEMISTRY.
[2019-10-02 06:48] LABS: CALCIUM 8.2 mg/dL (8.5-10.1); CREATININE 1.1 mg/dL (0.6-1.0); MAGNESIUM 2.2 mg/dL (1.8-2.4); POTASSIUM 4.6 mmol/L (3.5-5.1)
[2019-10-02 12:27] VITALS: BP 164/92
--- NOTE | 2019-10-02 14:54 | NUR ---
Nutrition: Pt admit with PNA, initial COVID negative. BMI 58. Dr Richardson request RD to visit with pt due to uncontrolled DM and frequently asking for more food often q 2-3 hrs per nsg notes. 100% intake of meals. Weights earlier this year > 400#. Current 330#. Possible significant loss. 2+ edema in legs. Need to obtain further wt hx. Attempted to phone pt due to enhanced precautions room. Pt did not answer on 2 attempts. Note per past RD notes pt with likely noncompliance hx. Educations have been offered in the past as well as information related to alternative menu/carb contents of menu items. Latest A1C pending. Last month A1C 10.3. BG 375-500 On both SSI and glargine. Endocrinology managing. RD will re-attempt phone interview within 1-[address] as low nutrition risk.
[2019-10-02 16:31] VITALS: BP 150/82
--- NOTE | 2019-10-02 17:07 | NUR ---
PT IS A&OX3, PT IS CONTINUING IV ABX, AND BS MANAGEMENT , PT'S BS HAS IMPROVED, PT'S VS ARE STABLE, PT'S COVID TEST RESULT IS PENDING.
--- NOTE | 2019-10-02 17:37 | NUR ---
INITIAL ASSESSMENT: SW reviewed chart and spoke with nursing. Pt was admitted from home due to pneumonia. Pt placed in Enhanced Isolation to r/o COVID-19. Pt's first test was negative. Second test is pending. SW spoke with pt via phone. Introduced role of SW. Pt appears to be alert/orientated. Pt reports she lives at home with her . Prior to admission, pt was independent with ADLs. Pt does have a walker. 2 steps to enter their home and no steps inside. Pt has a home CPAP machine through [employer]. Pt's home O2 is through [facility]. Pt states she used O2 PRN. No hx of HH services or post-acute placement. Pt's PCP is Dr. Deepa Hernandes. Pt's plan is to discharge home when medically stable. SW is following to assist as needed with discharge planning.
[2019-10-02 19:23] VITALS: BP 139/80
[2019-10-03 02:06] LABS: GLYCOHEMOGLOBIN (HGB A1C) 10.5 % (4.8-5.6)
[2019-10-03 06:01] VITALS: BP 151/96
[2019-10-03 06:29] LABS: CALCIUM 8.2 mg/dL (8.5-10.1); CREATININE 1.1 mg/dL (0.6-1.0); POTASSIUM 4.1 mmol/L (3.5-5.1)
[2019-10-03 07:14] VITALS: BP 169/96
[2019-10-03 11:38] VITALS: BP 150/88
[2019-10-03 12:21] VITALS: BP 116/59
[2019-10-03 15:21] VITALS: BP 142/69
--- NOTE | 2019-10-03 16:11 | NUR ---
SW reviewed chart and spoke with nursing. Pt's COVID test is negative. Pt to transfer off of 3W when a bed is available. Pt is afebrile. Remains on IV abx. Plan is for pt to discharge home when medically stable. Pt has DME and home O2 in place. SW is following to assist as needed with discharge planning.
[2019-10-03 19:20] VITALS: BP 147/77
--- NOTE | 2019-10-03 19:48 | NUR ---
Assumed pt care this pm, transferred from , pt is up ad yara and steady on her gait. Stayed on her recliner, pain is managed with medications, diet is well tolerated. POC followed with no signs or verbalizations of distress noted.
[2019-10-04 06:05] LABS: CALCIUM 8.6 mg/dL (8.5-10.1); CREATININE 1.1 mg/dL (0.6-1.0); MAGNESIUM 1.8 mg/dL (1.8-2.4); POTASSIUM 4.6 mmol/L (3.5-5.1)
[2019-10-04 07:59] VITALS: BP 154/83
--- NOTE | 2019-10-04 09:02 | NUR ---
PROGRESS PT A/O X4 SKIN WARM DRY INTACT LUNGS DIMINISHED PT HAS AN INFREQUENT NON PRODUCTIVE COUGH C/O RIGHT CHEST MUSCULAR PAIN FROM COUGHING THAT IS RELIEVED WITH HYDROCODONE. PT UP WITH SBA VOIDING QS BS POSITIVE ACCUCHECKS AND SSI CONTINUE PT IS A COMPULSIVE EATER AND REQUESTS LARGE AMOUNTS OF FOOD.
[2019-10-04] MEDS ORDERED: AZITHROMYCIN500 MG PO (09:48)
[2019-10-04] MEDS ORDERED: CEFDINIR300 MG PO (09:48)
[2019-10-04 11:20] VITALS: BP 154/83
--- NOTE | 2019-10-04 13:15 | NUR ---
CARE TEAM INDICATED THAT PT IS MEDICALLY STABLE TO DC HOME THIS DAY. PT HAS DME AND HOME O2. PT TO DC HOME TO SELF CARE. PT'S SPOUSE TO PROVIDE TRANSPORT HOME THIS DAY VIA PERSONAL VEHICLE. NO OTHER CM INTERVENTION INDICATED. CASE CLOSED.
--- NOTE | 2019-10-04 14:11 | NUR ---
assumed pt care this am, VS stable diet and medications are well tolerated. POC followed with no signs or verbalizations of distress noted. DC intructions given to the pt by discharge nurse. IV removed pt has been picked up by at the ER, pt is now dc.
== END 2019-10-04 13:45 | disposition home or self-care (01) | DRG 194 ==
LOC: ER 14:53 → 3W 17:45 → EROBS 17:45 → 3W 19:15 → 4W 10-03 11:58
PROVIDERS: Internal Medicine; Physician Assistant; ADMIT Internal Medicine; ATTEND Internal Medicine
DX: J18.9 Pneumonia, unspecified organism (principal); Z68.43 Body mass index [BMI] 50.0-59.9, adult; E87.1 Hypo-osmolality and hyponatremia; J44.0 Chronic obstructive pulmonary disease with (acute) lower respiratory infection; I10 Essential (primary) hypertension; F32.9 Major depressive disorder, single episode, unspecified; E66.01 Morbid (severe) obesity due to excess calories; F41.9 Anxiety disorder, unspecified; K21.9 Gastro-esophageal reflux disease without esophagitis; E78.5 Hyperlipidemia, unspecified; E11.9 Type 2 diabetes mellitus without complications; I89.0 Lymphedema, not elsewhere classified; Z20.828 Contact with and (suspected) exposure to other viral communicable diseases; G47.33 Obstructive sleep apnea (adult) (pediatric); B37.9 Candidiasis, unspecified; Z86.73 Personal history of transient ischemic attack (TIA), and cerebral infarction without residual deficits; Z86.718 Personal history of other venous thrombosis and embolism; Z90.49 Acquired absence of other specified parts of digestive tract; Z88.6 Allergy status to analgesic agent; Z88.1 Allergy status to other antibiotic agents; Z88.0 Allergy status to penicillin; Z82.49 Family history of ischemic heart disease and other diseases of the circulatory system; Z80.1 Family history of malignant neoplasm of trachea, bronchus and lung; Z87.891 Personal history of nicotine dependence; Z86.711 Personal history of pulmonary embolism
CPT/HCPCS: 10047; 10879

== ENCOUNTER 2019-10-10 19:28 | Emergency (ER) | payer OTHER ==
[~2019-10-10] VITALS: Ht 160 cm; Wt 172.4 kg
[~2019-10-10 19:28] MED LIST changes: +AZITHROMYCIN500 MG PO; +CEFDINIR300 MG PO
[2019-10-10 22:25] VITALS: BP 115/47
--- NOTE | 2019-10-12 09:02 | EKG ---
[facility] [place] [address] ELECTROCARDIOGRAM REPORT Name: AYAH EVANS Room #: DEP [facility]#: [id number] Admission: 10/10/19 Attend Phys: Discharge: 10/10/19 Date of : 75 Report #: [id number] THIS REPORT FOR: cc: JAYANT - No family physician/PCP FAM - No family physician/PCP Vijay Riddle MD [facility] THIS REPORT FOR: //name// [facility] ED Test Date: 2019-10-10 Test Time: 19:47:23 Pat Name: AYAH EVANS Department: Room: Gender: F Special Events Driver: CRIS : 1975 Requested By: Lucian Goodrich Order Number: [id number] MD: Vijay Riddle Measurements Intervals [place] Rate: 104 P: 41 [place]: 130 QRS: 4 QRSD: 124 T: -1 QT: 352 QTc: 463 Interpretive Statements Sinus tachycardia Nonspecific intraventricular conduction delay Inferior infarct, old Poor R wave progression Compared to ECG 09/30/2019 15:27:31 No significant change was found Electronically Signed On 10-12-2019 9:02:25 CDT by Vijay Riddle [email or web address] <ELECTRONICALLY SIGNED> By: Vijay Riddle MD, [facility] 10/12/19 0902 46 46 Vijay Riddle MD, [facility] /EPI
== END 2019-10-10 22:25 | disposition home or self-care (01) ==
LOC: ER 19:28
DX: R06.02 Shortness of breath (principal); R11.0 Nausea; R07.9 Chest pain, unspecified; R60.0 Localized edema; I87.8 Other specified disorders of veins; E66.01 Morbid (severe) obesity due to excess calories; E11.9 Type 2 diabetes mellitus without complications; I10 Essential (primary) hypertension; F32.9 Major depressive disorder, single episode, unspecified; J44.9 Chronic obstructive pulmonary disease, unspecified; F41.9 Anxiety disorder, unspecified; K21.9 Gastro-esophageal reflux disease without esophagitis; E78.5 Hyperlipidemia, unspecified; Z68.44 Body mass index [BMI] 60.0-69.9, adult; F17.210 Nicotine dependence, cigarettes, uncomplicated; Z86.73 Personal history of transient ischemic attack (TIA), and cerebral infarction without residual deficits; Z90.49 Acquired absence of other specified parts of digestive tract; Z79.899 Other long term (current) drug therapy; Z79.4 Long term (current) use of insulin; Z88.6 Allergy status to analgesic agent; Z88.4 Allergy status to anesthetic agent; Z88.5 Allergy status to narcotic agent; Z88.0 Allergy status to penicillin

== ENCOUNTER 2020-08-21 17:30 | Inpatient (IN) | payer OTHER ==
[~2020-08-21] VITALS: Ht 160 cm; Wt 157.9 kg
[2020-08-21 17:30] VITALS: BP 122/79
[~2020-08-21 17:30] MED LIST changes: -ALBUTEROL2.5 MG/3 M INH; -NEURONTIN 300300 M1 PO; +NEURONTIN300 MG PO; -OMEPRAZOLE40 MG PO; +PROAIR HFA8.5 GM INH; +PROTONIX40 M2 PO
[2020-08-21 18:05] LABS: ABSOLUTE NEUTROPHILS 11.6 thou/uL (1.4-8.2); BASOPHILS 0.8 % (0.0-2.0); EOSINOPHILS 0.5 % (0.0-3.0); HEMATOCRIT 39.3 % (37.0-47.0); HEMOGLOBIN 13.5 gm/dL (12.0-15.0); LYMPHOCYTES 12.5 % (24.0-44.0); MCH 27.8 pg (26.0-34.0); MCHC 34.3 g/dL (28.0-37.0); MCV 80.9 fL (80.0-100.0); MONOCYTES 4.8 % (1.0-8.0); PLATELET COUNT 409 thou/uL (150-400); POLYS 81.4 % (36.0-66.0); RBC 4.86 mil/uL (4.20-5.00); RDW 15.7 % (10.5-14.5); WBC 14.2 thou/uL (4.0-11.0)
[2020-08-21 18:14] LABS: ANION GAP 10 mmol/L (7-16); BUN 17 mg/dL (7-18); CALCIUM 9.1 mg/dL (8.5-10.1); CHLORIDE 105 mmol/L (98-107); CO2 25 mmol/L (21-32); GLUCOSE 147 mg/dL (74-106); POTASSIUM 3.9 mmol/L (3.5-5.1); SODIUM 140 mmol/L (136-145)
[2020-08-21 18:23] LABS: TROPONIN-I <0.06 ng/mL (<0.06)
[2020-08-21 18:44] LABS: URINE BILIRUBIN NEGATIVE (Negative); URINE BLOOD TRACE (Negative); URINE CLARITY CLEAR; URINE COLOR YELLOW; URINE GLUCOSE-RANDOM* 2+ (Negative); URINE KETONES NEGATIVE (Negative); URINE LEUKOCYTES-REFLEX NEGATIVE (Negative); URINE NITRITE-REFLEX NEGATIVE (Negative); URINE PROTEIN (DIPSTICK) 3+ (Negative); URINE SPECIFIC GRAVITY >= 1.030 (1.005-1.035); URINE UROBILINOGEN 0.2 E.U./dl (0.2-1.0)
[2020-08-21 18:56] LABS: BACTERIA-REFLEX 1-9 Few /HPF (None Seen); CASTS None Seen /LPF (None Seen); SQUAMOUS 4-10 Moderate /LPF (0-3); URINE RBC 1-2 Rare /HPF (NONE SEEN); URINE WBC-REFLEX 0-5 Rare /HPF (0-5)
[2020-08-21 18:57] LABS: CRYSTALS None Seen /LPF (None Seen); YEAST-REFLEX Present (None Seen)
[2020-08-21 21:29] VITALS: BP 141/60
[2020-08-21 21:45] VITALS: BP 110/39
[2020-08-21 21:58] VITALS: BP 109/48
[2020-08-21] MEDS ORDERED: ELIQUIS5 MG PO (23:58)
[2020-08-22] MEDS ORDERED: MIRTAZAPINE15 M2 PO
[2020-08-22] MEDS ORDERED: DULOXETINE HCL60 MG PO (00:02)
[2020-08-22 03:07] LABS: CHOLESTEROL 152 mg/dL (<200); HDL CHOLESTEROL 36 mg/dL (>40); LDL CHOLESTEROL 83 mg/dL (<100); TC:HDL 4.2 Ratio (Not establshd); TRIGLYCERIDE 165 mg/dL (<150); VLDL 33 mg/dL (<40)
[2020-08-22 03:10] LABS: SERUM ASSESSMENT Clear
--- NOTE | 2020-08-22 03:36 | NUR ---
PT ADMITTED TO ROOM 209 AT 2200, PT IS AWAKE, ALERT AND ORIENTEDX4, ORIENTED TO ROOM, ADMISSION ASSESSMENT AND HISTORY COMPLETED, PT RATES CP AT 10/21, SENIOR DIRECTOR OF GLOBAL COMMERCIAL TECHNOLOGY SOLUTIONS NOTIFIED, SR ON TELE, ORDERS RECEIVED AND IMPLEMENTED, ASSESSMENTS CHARTED, PT SLEEPING, NO DISTRESS NOTED, WILL CONTINUE TO MONITOR AND FOLLOW POC
[2020-08-22 04:27] VITALS: BP 133/74
--- NOTE | 2020-08-22 07:05 | EKG ---
[address] [place] [address] ELECTROCARDIOGRAM REPORT Name: AYAH EVANS Room #: 209-P ADM IN M.R.#: [id number] Admission: 08/21/20 Attend Phys: Kojo Thompson Discharge: Date of : 75 Report #: [id number] [facility] ED Test Date: 2020-08-21 Test Time: 17:34:16 Pat Name: AYAH EVANS Department: Room: 209 Gender: F Cut Off Saw Set Up Operator: AMY : 1975 Requested By: Erik Pollack Order Number: [id number] MD: Olaf Wilson Measurements Intervals [place] Rate: 100 P: 40 [place]: 116 QRS: -1 QRSD: 127 T: 3 QT: 382 QTc: 493 Interpretive Statements Sinus tachycardia Nonspecific intraventricular conduction delay Consider inferior infarct Compared to ECG 10/10/2019 19:47:23 Poor R-wave progression no longer present Myocardial infarct finding still present Electronically Signed On 08-22-2020 7:05:38 CDT by Olaf Wilson [email or web address] <ELECTRONICALLY SIGNED> By: Olaf Wilson MD, [facility] 08/22/20 07 1734 1734 Olaf Wilson MD, [facility] /EPI
[2020-08-22 08:53] VITALS: BP 151/98
--- NOTE | 2020-08-22 09:41 | 2DMMODE ---
[facility] [address] [place] [address] 2 D/M-MODE ECHOCARDIOGRAM Name: AYAH EVANS Room #: 209-P ADM IN M.R.#: [id number] Admission: 08/21/20 Attend Phys: Kwabena Richardson MD Discharge: Date of : 75 Report #: [id number] THIS REPORT FOR: cc: FAM - Family physician unknown FAM - Family physician unknown Chance Christopher MD ~ APPROVED REPORT Study performed: 08/22/2020 08:40:42 EXAM: Comprehensive 2D, Doppler, and color-flow Echocardiogram Patient Location: Bedside Room #: 209 Status: routine BSA: 2.42 HR: 72 bpm BP: 133/74 mmHg Rhythm: NSR Other Information Study Quality: Poor Technically limited study due to super morbid obesity. Indications Chest Pain Hx: PE, HTN, HLP, DM, COPD. Echo Enhancing Agent Indication: Endocardial border delineation Agent(s) / Amount(s) Used: Optison 6 cc 2D Dimensions IVSd: 13.00 (7-11mm) LVOT Diam: 21.12 (18-24mm) LVDd: 45.29 mm PWd: 13.58 (7-11mm) Ascending Ao: 31.82 (22-36mm) LVDs: 33.23 (25-40mm) Left Atrium: 42.18 (27-40mm) Aortic Root: 35.93 mm Volumes Left Atrial Volume (Systole) Single Plane 4CH: 50.72 mL Single Plane 2CH: 85.17 mL LA ESV Index: 29.00 mL/m2 [facility] [address] [place] [address] 2 D/M-MODE ECHOCARDIOGRAM Name: CRISTINALIZETTEAYAH L Room #: 209-P [facility] IN .R.#: [id number] Admission: 08/21/20 Attend Phys: Kwabena Richardson, Discharge: Date of : 75 Report #: [id number] Aortic Valve AoV Peak Abdirahman.: 1.49 m/s AO Peak Gr.: 8.86 mmHg LVOT Max P.65 mmHg LVOT Max V: 1.08 m/s ALEC Vmax: 2.54 cm2 Mitral Valve E/A Ratio: 0.8 MV Decel. Time: 248.57 ms MV E Max Abdirahman.: 0.79 m/s MV A Abdirahman.: 1.01 m/s MV PHT: 72.09 ms IVRT: 93.43 ms Pulmonary Valve PV Peak Abdirahman.: 0.94 m/s PV Peak Gr.: 3.53 mmHg Tricuspid Valve TR Peak Abdirahman.: 3.24 m/s RAP Estimate: 5.00 mmHg TR Peak Gr.: 42.08 mmHg PA Pressure: 47.00 mmHg Left Ventricle The left ventricle is normal size. There is normal LV segmental wall motion. Mild concentric left ventricular hypertrophy. Left ventricular systolic function is normal. LVEF is 60%. Mild diastolic dysfunction is present (impaired relaxation pattern). Right Ventricle Right ventricle is not well visualized. Atria The left atrium size is normal. The right atrium size is normal. Aortic Valve The aortic valve is normal in structure. No aortic regurgitation is present. There is no aortic valvular stenosis. Mitral Valve The mitral valve is normal in structure. Mild to moderate mitral regurgitation. Tricuspid Valve The tricuspid valve is normal in structure. Mild tricuspid [facility] [address] [place] [address] 2 D/M-MODE ECHOCARDIOGRAM Name: AYAH EVANS Kaden Room #: 209-P [facility] IN M.R.#: [id number] Admission: 08/21/20 Attend Phys: Kwabena Richardson, Discharge: Date of : 75 Report #: [id number] regurgitation. Estimated PAP is 42mmHg. Pulmonic Valve Pulmonic valve is not well visualized. There is no pulmonic valvular regurgitation. Great Vessels The aortic root is normal in size. The ascending aorta is normal in size. IVC is normal in size and collapses >50% with inspiration. Pericardium There is no pericardial effusion. <Conclusion> The left ventricle is normal size. Mild concentric left ventricular hypertrophy. Left ventricular systolic function is normal. Mild diastolic dysfunction is present (impaired relaxation pattern). Right ventricle is not well visualized. The left atrium size is normal. The aortic valve is normal in structure. Mild to moderate mitral regurgitation. Mild tricuspid regurgitation. Estimated PAP is 42mmHg. <ELECTRONICALLY SIGNED> By: Chance Christopher MD 08/22/20940 0 0 Chance Christopher MD /INF
[2020-08-22 12:34] VITALS: BP 148/81
--- NOTE | 2020-08-22 16:18 | NUR ---
met with patient who admits with chest pain. Patient resides at home with spouse. 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 Patient has CPAP at home. Patient does not use oxygen at home. She is currently weaned off oxygen. Patient reports she has PCP. She [place] and coverage for prescriptions. Patient anticipates no needs from casemgt at discharge. Following and avail if needs arise.
[2020-08-22] MEDS ORDERED: HUMALOG100 UNIT/1 SUBQ (16:19)
[2020-08-22] MEDS ORDERED: MIRALAX119 GM PO (16:20)
[2020-08-22] MEDS ORDERED: SPIRONOLACTONE25 MG PO (16:21)
[2020-08-22] MEDS ORDERED: ZIPRASIDONE HCL20 M2 PO (16:22)
--- NOTE | 2020-08-22 16:33 | NUR ---
ASSUMED CARE SHIFT CHANGE. VSS. MEDS GIVEN PER MAY. PT UP WITH WALKER DIAN WELL. DENIES CHEST PAIN. ECHO NORM. PLAN FOR STRESS TEST OUTPT ONCE DC. LASIX GIVEN DIURESING APPROPRIATELY. DENIES NEEDS CURRENTLY. CONTINUING POC. WILLPASS ON REPORT TO NOC RN.
[2020-08-22 19:21] VITALS: BP 149/44
[2020-08-23 00:06] LABS: GLYCOHEMOGLOBIN (HGB A1C) 10.3 % (4.8-5.6)
[2020-08-23 03:49] VITALS: BP 126/52
--- NOTE | 2020-08-23 04:27 | NUR ---
SLEPT PART OF NOC ON CPAP WITH 2L/O2. UP WITH STANDBY ASSIST NEEDED TO BATHROOM WITH WALKER WITH SLOW STEADY GAIT. WORKING ON GOALS AND PLAN OF CARE FOR NOC. CONTINUE TO ASSES CLOSELY.
[2020-08-23 07:33] VITALS: BP 138/76
[2020-08-23] MEDS ORDERED: LASIX 40 MG TAB40 MG PO ×2 (09:25→14:10)
[2020-08-23 11:33] VITALS: BP 139/73
[2020-08-23 12:17] LABS: HEMATOCRIT 40.6 % (37.0-47.0); HEMOGLOBIN 13.2 gm/dL (12.0-15.0); MCHC 32.5 g/dL (28.0-37.0); MCV 83.2 fL (80.0-100.0); RBC 4.88 mil/uL (4.20-5.00); RDW 16.3 % (10.5-14.5); WBC 11.4 thou/uL (4.0-11.0)
[2020-08-23 12:27] LABS: CALCIUM 9.1 mg/dL (8.5-10.1); CREATININE 1.2 mg/dL (0.6-1.0); MAGNESIUM 1.8 mg/dL (1.8-2.4); POTASSIUM 4.5 mmol/L (3.5-5.1)
[2020-08-23 15:42] VITALS: BP 139/73
--- NOTE | 2020-08-23 16:32 | NUR ---
RECEIVED THE PATIENT SITTING ON CHAIR, CONSCIOUS AND ORIENTED.ON ROOM AIR BREATHING SPONTANEOUSLY.NO COMPLAINTS OF CHEST PAIN.NOT IN DISTRESS.VITALL STABLE THROUGHOUT THE SHIFT.DICHARGE PACKET GIVEN TO THE PATIENT AND EVERYTHING EXPLAINED.WAITING FOR HER RIDE,TO DISCHARGE PATIENT.
--- NOTE | 2020-08-23 17:56 | NUR ---
DISCHARGED PATIENT ON STABLE CONDITION.NOT IN PAIN OR DISTRESS
== END 2020-08-23 17:57 | disposition home or self-care (01) | DRG 191 ==
LOC: ER 17:30 → 2N 21:17 → EROBS 21:17 → 2N 21:45
PROVIDERS: Nurse Practitioner; Nurse Practitioner Family; ADMIT Internal Medicine; ATTEND Internal Medicine
PROC: 5A09357 Assistance with Respiratory Ventilation, Less than 24 Consecutive Hours, Continuous Positive Airway Pressure (ICD-10-PCS; principal; 2020-08-22)
DX: J44.1 Chronic obstructive pulmonary disease with (acute) exacerbation (principal); Z68.44 Body mass index [BMI] 60.0-69.9, adult; I50.32 Chronic diastolic (congestive) heart failure; I11.0 Hypertensive heart disease with heart failure; F32.9 Major depressive disorder, single episode, unspecified; F41.9 Anxiety disorder, unspecified; E78.5 Hyperlipidemia, unspecified; K21.9 Gastro-esophageal reflux disease without esophagitis; E11.42 Type 2 diabetes mellitus with diabetic polyneuropathy; G47.33 Obstructive sleep apnea (adult) (pediatric); F17.210 Nicotine dependence, cigarettes, uncomplicated; E66.01 Morbid (severe) obesity due to excess calories; B37.9 Candidiasis, unspecified; I50.810 Right heart failure, unspecified; Z86.73 Personal history of transient ischemic attack (TIA), and cerebral infarction without residual deficits; Z90.49 Acquired absence of other specified parts of digestive tract; Z79.01 Long term (current) use of anticoagulants; Z86.711 Personal history of pulmonary embolism; Z86.718 Personal history of other venous thrombosis and embolism; Z79.4 Long term (current) use of insulin; Z79.899 Other long term (current) drug therapy; Z88.5 Allergy status to narcotic agent; Z88.0 Allergy status to penicillin; Z88.8 Allergy status to other drugs, medicaments and biological substances
CPT/HCPCS: 10081

== ENCOUNTER 2020-10-08 14:52 | Inpatient (IN) | payer OTHER ==
[~2020-10-08] VITALS: Ht 160 cm; Wt 161.5 kg
[~2020-10-08 14:52] MED LIST changes: +DULOXETINE HCL60 MG PO; +MIRALAX119 GM PO; +MIRTAZAPINE15 M2 PO; +SPIRONOLACTONE25 MG PO; +ZIPRASIDONE HCL20 M2 PO
[2020-10-08 16:05] LABS: ABSOLUTE NEUTROPHILS 9.8 thou/uL (1.4-8.2); BASOPHILS 0.9 % (0.0-2.0); EOSINOPHILS 1.3 % (0.0-3.0); HEMATOCRIT 43.3 % (37.0-47.0); HEMOGLOBIN 14.2 gm/dL (12.0-15.0); LYMPHOCYTES 20.8 % (24.0-44.0); MCH 27.5 pg (26.0-34.0); MCHC 32.7 g/dL (28.0-37.0); MCV 84.2 fL (80.0-100.0); MONOCYTES 4.9 % (1.0-8.0); PLATELET COUNT 417 thou/uL (150-400); POLYS 72.1 % (36.0-66.0); RBC 5.14 mil/uL (4.20-5.00); RDW 16.4 % (10.5-14.5); WBC 13.6 thou/uL (4.0-11.0)
[2020-10-08 17:05] LABS: ANION GAP 12 mmol/L (7-16); BUN 23 mg/dL (7-18); CALCIUM 9.3 mg/dL (8.5-10.1); CHLORIDE 100 mmol/L (98-107); CO2 23 mmol/L (21-32); CREATININE 1.7 mg/dL (0.6-1.0); GLUCOSE 461 mg/dL (74-106); POTASSIUM 4.7 mmol/L (3.5-5.1); SODIUM 135 mmol/L (136-145)
[2020-10-08 17:15] LABS: ALBUMIN 2.9 g/dL (3.4-5.0); SGOT 12 U/L (15-37); SGPT 15 U/L (14-59); TOTAL BILIRUBIN 0.2 mg/dL (0.2-1.0); TOTAL PROTEIN 7.1 g/dL (6.4-8.2); TROPONIN-I <0.06 ng/mL (<0.06)
[2020-10-08 23:02] VITALS: BP 127/62
[2020-10-09 00:10] VITALS: BP 104/76
[2020-10-09 00:22] VITALS: BP 127/62
[2020-10-09 02:34] LABS: HEMATOCRIT 40.1 % (37.0-47.0); HEMOGLOBIN 13.1 gm/dL (12.0-15.0); MCH 27.7 pg (26.0-34.0); MCHC 32.7 g/dL (28.0-37.0); MCV 84.8 fL (80.0-100.0); RBC 4.73 mil/uL (4.20-5.00); RDW 16.9 % (10.5-14.5); WBC 13.6 thou/uL (4.0-11.0)
--- NOTE | 2020-10-09 02:37 | NUR ---
ADMISSION COMPLETED. PT SPECIFICALLY ASK FOR IV PAIN MEDICATION, AT FIRST MEETING TONIGHT (WHEN SHE ARRIVED ON THE FLOOR). SPOKE WITH TURNTABLE WORKER, RECCOMMED TO GIVE ACETAMINOPHEN FOR PAIN CONTROL. SHE COMPLAINS OF ALLOVER BODY ACHES AND RT ARM SORENESS AFTER COVID SHOT 10/08. IV FLUIDS INFUSING, ANTIBIOTICS STARTED. ORIENTED TO ROOM AND SURROUNDINGS. CAREPLAN INIATED
[2020-10-09 03:00] LABS: CALCIUM 8.4 mg/dL (8.5-10.1); CREATININE 1.9 mg/dL (0.6-1.0); POTASSIUM 5.1 mmol/L (3.5-5.1)
[2020-10-09 04:55] VITALS: BP 116/71
--- NOTE | 2020-10-09 07:15 | EKG ---
[address] [address] ELECTROCARDIOGRAM REPORT Name: AYAH EVANS Room #: 363-P ADM IN M.R.#: [id number] Admission: 10/08/20 Attend Phys: Kwabena Richardson MD Discharge: Date of : 75 Report #: [id number] [facility] ED Test Date: 2020-10-08 Test Time: 14:56:23 Pat Name: AYAH EVANS Department: Room: 363 Gender: F Plycor Operator: CHERI : 1975 Requested By: Jacob Carr Order Number: [id number] MD: Olaf Wilson Measurements Intervals [place] Rate: 111 P: 42 [place]: 109 QRS: 22 QRSD: 124 T: 7 QT: 339 QTc: 461 Interpretive Statements Sinus tachycardia Probable left atrial enlargement Compared to ECG 08/21/2020 17:34:16 Myocardial infarct finding no longer present Electronically Signed On 10-09-2020 7:15:42 CDT by Olaf Wilson [email or web address] <ELECTRONICALLY SIGNED> By: Olaf Wilson MD, [facility] 10/09/20 0715 1456 1456 Olaf Wilson MD, [facility] /EPI
[2020-10-09 07:20] VITALS: BP 113/53
[2020-10-09] MEDS ORDERED: JARDIANCE10 MG PO (14:26)
[2020-10-09] MEDS ORDERED: TORSEMIDE20 MG PO (14:27)
[2020-10-09 15:20] VITALS: BP 134/61
--- NOTE | 2020-10-09 16:16 | NUR ---
INITIAL ASSESSMENT: SW reviewed chart and spoke with nursing. Pt was admitted from home due to chest pain. Pt is on 3L of O2 and is on IV abx and IV steroids. Pt has received the Moderna COVID vaccine. SW spoke with pt via phone. Introduced role of SW. Pt appears to be alert/orientated. Pt reports she lives at home with her . Prior to admission, pt was independent with ADLs. Pt does have a walker. 3 steps to enter their home and no steps inside. Pt has a home CPAP machine through [employer]. Pt's home O2 is through [facility]. Pt states she uses 3L continuously. No hx of HH services or post-acute placement. Pt's PCP is Dr. Deepa Hernandes. Pt's plan is to discharge home when medically stable. SW is following to assist as needed with discharge planning.
--- NOTE | 2020-10-09 18:35 | NUR ---
ASSUMED PATIENT CARE AT 0700. A/0 X4. NO CHEST PAIN. NOTED BG > 500. LAB GLUCOSE STAT ORDERED. IT WAS 635. GOT ORDER FROM DR PENA. KEEP MONITOR.
[2020-10-09 20:19] VITALS: BP 131/76
[2020-10-10 02:37] LABS: CALCIUM 8.1 mg/dL (8.5-10.1); CREATININE 1.6 mg/dL (0.6-1.0); HEMATOCRIT 38.9 % (37.0-47.0); HEMOGLOBIN 12.8 gm/dL (12.0-15.0); MAGNESIUM 2.2 mg/dL (1.8-2.4); MCH 27.7 pg (26.0-34.0); MCHC 32.8 g/dL (28.0-37.0); MCV 84.2 fL (80.0-100.0); RBC 4.62 mil/uL (4.20-5.00); RDW 16.4 % (10.5-14.5); WBC 12.3 thou/uL (4.0-11.0)
[2020-10-10 04:31] VITALS: BP 119/66
--- NOTE | 2020-10-10 05:14 | NUR ---
DC'D IV FLUIDS PER NOTE LEFT BY MP. PT UP TO BATHROOM WITH SBA. NO FURTHER COMPLAINTS OF CHEST PAIN OVERNIGHT. PT CALLS FREQUENTLY FOR SANDWICH TRAYS SODA, AND CHICKEN BROTH. BLOOD SUGAR TRENDING DOWN. VSS OVERNIGHT. CALL LIGHT WITHIN REACH.
[2020-10-10 07:49] VITALS: BP 136/69
[2020-10-10] MEDS ORDERED: IMDUR 30 MG TAB30 M1 PO (11:46)
--- NOTE | 2020-10-10 12:25 | NUR ---
SW reviewed chart and spoke with nursing and attending physician. Pt is on IV abx and IV steroids. Pt to have second part of stress test today. Pt is progressing towards goals for discharge. Chest xray was worse today. COVID test ordered and is negative. SW spoke with pt via phone to discuss discharge plan. Per pt, she may discharge home later today or over the weekend. Pt denies having any SW needs at time of discharge. Pt states she is having trouble with her portable concentrator at home. Pt uses [facility] for home O2. SW encouraged pt to contact [facility] to come evaluate her DME at home. Pt verbalized understanding. Contact info for [facility] placed in pt's discharge summary. Pt states she will have transportation home when discharged. No SW needs identified at this time, but is available to assist should needs arise.
[2020-10-10 13:22] VITALS: BP 136/69
[2020-10-10 16:24] VITALS: BP 120/65
[2020-10-10 20:45] VITALS: BP 126/62
[2020-10-11 05:35] VITALS: BP 122/65
[2020-10-11 07:59] VITALS: BP 12/2
[2020-10-11 12:43] LABS: ABSOLUTE NEUTROPHILS 11.1 thou/uL (1.4-8.2); HEMATOCRIT 38.4 % (37.0-47.0); HEMOGLOBIN 12.4 gm/dL (12.0-15.0); LYMPHOCYTES 7.5 % (24.0-44.0); MCH 27.5 pg (26.0-34.0); MCHC 32.3 g/dL (28.0-37.0); MONOCYTES 3.1 % (1.0-8.0); PLATELET COUNT 307 thou/uL (150-400); POLYS 89.4 % (36.0-66.0); RBC 4.52 mil/uL (4.20-5.00); RDW 16.5 % (10.5-14.5); WBC 12.4 thou/uL (4.0-11.0)
[2020-10-11 12:53] LABS: ALBUMIN 2.4 g/dL (3.4-5.0); CALCIUM 8.7 mg/dL (8.5-10.1); CREATININE 1.4 mg/dL (0.6-1.0); MAGNESIUM 2.3 mg/dL (1.8-2.4); POTASSIUM 4.9 mmol/L (3.5-5.1); TOTAL BILIRUBIN 0.1 mg/dL (0.2-1.0); TOTAL PROTEIN 6.1 g/dL (6.4-8.2)
[2020-10-11 15:15] VITALS: BP 118/61
[2020-10-11 19:51] VITALS: BP 148/81
[2020-10-11] MEDS ORDERED: OXYCODONE HCL 55 MG PO (22:33)
--- NOTE | 2020-10-12 06:26 | NUR ---
PT HAD COMPLAINTS OF NON CARDIAC CHEST PAIN ON LEFT SIDE. RESTARTED PAIN MEDICATION PT HAS HAD IN PAST WITH [employer]. PT REQUEST MULTIPLE FOOD ITEMS. FOLLOWING POC WITH IVPB ANTIBIOTIC. HOURLY ROUNDING.
[2020-10-12 07:26] VITALS: BP 144/86
[2020-10-12 15:47] VITALS: BP 145/85
[2020-10-12] MEDS ORDERED: DOXYCYCLINE 10100 M2 PO (17:29)
[2020-10-12] MEDS ORDERED: PREDNISONE 10 M10 MG PO (17:29)
--- NOTE | 2020-10-12 17:47 | NUR ---
DISCONTINUE IV AND TELE. PT UNDERSTANDS ALL FOLLOW UP ORDERS. WILL DISCHARGE TO HOME.
[2020-10-12 19:08] VITALS: BP 136/69
== END 2020-10-12 19:07 | disposition home or self-care (01) | DRG 291 ==
LOC: ER 14:52 → EROBS 18:48 → 3W 10-09 00:05
PROVIDERS: Internal Medicine; Nurse Practitioner Family; Student in an Organized Health Care Education/Training Program; ADMIT Internal Medicine; ATTEND Internal Medicine
DX: I13.0 Hypertensive heart and chronic kidney disease with heart failure and stage 1 through stage 4 chronic kidney disease, or unspecified chronic kidney disease (principal); J18.9 Pneumonia, unspecified organism; I50.33 Acute on chronic diastolic (congestive) heart failure; J44.1 Chronic obstructive pulmonary disease with (acute) exacerbation; J44.0 Chronic obstructive pulmonary disease with (acute) lower respiratory infection; Z68.44 Body mass index [BMI] 60.0-69.9, adult; N17.9 Acute kidney failure, unspecified; F41.9 Anxiety disorder, unspecified; E78.5 Hyperlipidemia, unspecified; J44.9 Chronic obstructive pulmonary disease, unspecified; E11.22 Type 2 diabetes mellitus with diabetic chronic kidney disease; E11.65 Type 2 diabetes mellitus with hyperglycemia; N18.30 Chronic kidney disease, stage 3 unspecified; E66.01 Morbid (severe) obesity due to excess calories; E28.2 Polycystic ovarian syndrome; F32.9 Major depressive disorder, single episode, unspecified; F17.210 Nicotine dependence, cigarettes, uncomplicated; G47.33 Obstructive sleep apnea (adult) (pediatric); I08.1 Rheumatic disorders of both mitral and tricuspid valves; Z20.822 Contact with and (suspected) exposure to COVID-19; Z86.73 Personal history of transient ischemic attack (TIA), and cerebral infarction without residual deficits; Z90.49 Acquired absence of other specified parts of digestive tract; Z86.718 Personal history of other venous thrombosis and embolism; Z79.4 Long term (current) use of insulin; Z79.899 Other long term (current) drug therapy; Z79.01 Long term (current) use of anticoagulants; Z88.1 Allergy status to other antibiotic agents; Z88.8 Allergy status to other drugs, medicaments and biological substances; Z88.0 Allergy status to penicillin; Z88.5 Allergy status to narcotic agent
CPT/HCPCS: 10879

== ENCOUNTER 2020-10-15 18:06 | Emergency (ER) | payer OTHER ==
[~2020-10-15] VITALS: Ht 160 cm; Wt 151.1 kg
[~2020-10-15 18:06] MED LIST changes: +DOXYCYCLINE 10100 M2 PO; +IMDUR 30 MG TAB30 M1 PO; +JARDIANCE10 MG PO; +OXYCODONE HCL 55 MG PO; +PREDNISONE 10 M10 MG PO; +TORSEMIDE20 MG PO
[2020-10-15 18:49] LABS: ABSOLUTE NEUTROPHILS 16.6 thou/uL (1.4-8.2); BASOPHILS 0.6 % (0.0-2.0); EOSINOPHILS 0.1 % (0.0-3.0); HEMATOCRIT 42.9 % (37.0-47.0); HEMOGLOBIN 14.2 gm/dL (12.0-15.0); LYMPHOCYTES 11.2 % (24.0-44.0); MCH 27.7 pg (26.0-34.0); MCHC 33.2 g/dL (28.0-37.0); MCV 83.5 fL (80.0-100.0); MONOCYTES 2.7 % (1.0-8.0); PLATELET COUNT 396 thou/uL (150-400); POLYS 85.4 % (36.0-66.0); RBC 5.15 mil/uL (4.20-5.00); RDW 16.8 % (10.5-14.5); WBC 19.5 thou/uL (4.0-11.0)
[2020-10-15 18:56] LABS: ANION GAP 9 mmol/L (7-16); BUN 23 mg/dL (7-18); CALCIUM 9.6 mg/dL (8.5-10.1); CHLORIDE 103 mmol/L (98-107); CO2 27 mmol/L (21-32); CREATININE 1.5 mg/dL (0.6-1.0); GLUCOSE 342 mg/dL (74-106); POTASSIUM 4.5 mmol/L (3.5-5.1); SODIUM 139 mmol/L (136-145)
[2020-10-15 19:07] LABS: ALBUMIN 2.7 g/dL (3.4-5.0); SGOT 12 U/L (15-37); SGPT 16 U/L (14-59); TOTAL BILIRUBIN 0.2 mg/dL (0.2-1.0); TOTAL PROTEIN 6.5 g/dL (6.4-8.2); TROPONIN-I <0.06 ng/mL (<0.06)
[2020-10-15 23:18] VITALS: BP 127/83
--- NOTE | 2020-10-16 07:30 | EKG ---
[place] [address] [facility] [place] [address] ELECTROCARDIOGRAM REPORT Name: AYAH EVANS [id number] Admission: 10/15/20 Attend Phys: Discharge: 10/15/20 Date of : 75 Report #: [id number] [facility] ED Test Date: 2020-10-15 Test Time: 18:28:41 Pat Name: AYAH EVANS Department: Room: Gender: F Associate Java Developer: ANABELLE : 1975 Requested By: Richi Caballero Order Number: [id number] MD: Olaf Wilson Measurements Intervals [place] Rate: 103 P: 38 [place]: 121 QRS: 10 QRSD: 122 T: 17 QT: 351 QTc: 460 Interpretive Statements Sinus tachycardia IVCD, consider atypical RBBB Compared to ECG 10/08/2020 14:56:23 No significant changes Electronically Signed On 10-16-2020 7:30:39 CDT by Olaf Wilson [email or web address] <ELECTRONICALLY SIGNED> By: Olaf Wilson MD, [facility] 10/16/20 0730 1828 1828 Olaf Wilson MD, [facility] /EPI
== END 2020-10-15 23:19 | disposition still patient (30) ==
LOC: ER 18:06
PROVIDERS: Emergency Medicine
DX: R06.02 Shortness of breath (principal); Z20.822 Contact with and (suspected) exposure to COVID-19; R07.89 Other chest pain; I11.0 Hypertensive heart disease with heart failure; I50.30 Unspecified diastolic (congestive) heart failure; F32.9 Major depressive disorder, single episode, unspecified; E66.01 Morbid (severe) obesity due to excess calories; J44.9 Chronic obstructive pulmonary disease, unspecified; F41.9 Anxiety disorder, unspecified; K21.9 Gastro-esophageal reflux disease without esophagitis; E78.5 Hyperlipidemia, unspecified; E11.9 Type 2 diabetes mellitus without complications; E28.2 Polycystic ovarian syndrome; Z79.2 Long term (current) use of antibiotics; Z90.49 Acquired absence of other specified parts of digestive tract; Z79.82 Long term (current) use of aspirin; Z79.4 Long term (current) use of insulin; Z79.899 Other long term (current) drug therapy; F17.210 Nicotine dependence, cigarettes, uncomplicated; Z88.0 Allergy status to penicillin; Z88.1 Allergy status to other antibiotic agents; Z88.6 Allergy status to analgesic agent